=== PATIENT | male | born 1950 | race Caucasian/White ===

== ENCOUNTER 2017-06-09 14:17 | Inpatient (IN) | payer OTHER ==
[~2017-06-09] VITALS: Ht 185.4 cm; Wt 118.0 kg
[~2017-06-09 14:17] MED LIST: DIVA500T5 PO; EFFSR150 PO; EFFSR75 PO; FLM4 PO; GLIM4TAB2 PO; INSDGI SC; LISI-725 PO; MELO-84 PO; NVLGI SC; OMEP20CA9 PO
[2017-06-09] MEDS ORDERED: SODIUM CHLORIDE 0.9% 500ML 500 ML IV STA (14:31)
[2017-06-09] MEDS ORDERED: OXYB10TA PO (14:55)
[2017-06-09 14:58] LABS: BASO % 0.1 %; BASO ABS # 0.01 K/uL (0-0.2); EOS % 0.1 %; EOS ABS # 0.01 K/uL (0-0.5); HEMATOCRIT 34.2 % (42-52); HEMOGLOBIN 11.9 g/dL (14.0-18.0); IG# 0.03 K/uL (0.00-0.02); LYMPH % 9.9 %; LYMPH ABS # 1.12 K/uL (1.2-3.4); MEAN CELL VOLUME 83.4 fL (80-100); MEAN CORPUSCULAR HGB CONC 34.8 g/dl (32-36); MEAN PLATELET VOLUME 9.5 fL (7.4-10.4); MONO % 9.8 %; MONO ABS # 1.11 K/uL (0.11-0.59); NEUT % 79.8 %; NEUT ABS # 9.06 K/uL (1.4-6.5); PLATELET COUNT 160 K/uL (130-400); RED CELL DISTRIBUTION WIDTH SD 42.9 fL (36.4-46.3); WHITE BLOOD COUNT 11.34 K/uL (4.8-10.8)
[2017-06-09] MEDS ORDERED: LOSA50TA6 PO (15:06)
[2017-06-09] MEDS ORDERED: CHOL1CAP63 PO (15:06)
--- NOTE | 2017-06-09 15:08 | DIAGNOSTIC IMAGING REPORT ---
CHEST ONE VIEW PORTABLE CLINICAL HISTORY: Weakness COMPARISON STUDY: No previous studies for comparison. FINDINGS: The cardiac and mediastinal contours are normal. There is no evidence of focal pulmonary consolidation. There is no evidence of failure. No pleural effusions are visualized.[ Degenerative changes are present within the left shoulder. There is an old left second rib fracture. IMPRESSION: No active disease in the chest. Electronically signed by: Chico Sotomayor M.D. 06/09/2017 3:07 PM Dictated Date/Time: 06/09/2017 3:06 PM
[2017-06-09 15:15] LABS: ALBUMIN 3.2 gm/dl (3.4-5.0); CALCIUM 8.4 mg/dl (8.5-10.1); CREATININE 2.49 mg/dl (0.60-1.40); POTASSIUM 3.8 mmol/L (3.5-5.1)
[2017-06-09] MEDS ORDERED: CRG625 PO (15:17)
[2017-06-09] MEDS ORDERED: NRV/5 PO (15:17)
[2017-06-09] MEDS ORDERED: SULF800T23 PO (15:17)
[2017-06-09] MEDS ORDERED: DPKEC500 PO (15:17)
[2017-06-09] MEDS ORDERED: SENN-61 PO (15:17)
[2017-06-09] MEDS ORDERED: NVLGI/PEN SQ ×2 (15:17)
[2017-06-09] MEDS ORDERED: LTRCR30 TOP (15:17)
[2017-06-09] MEDS ORDERED: INSDGIPEN SQ (15:17)
[2017-06-09] MEDS ORDERED: LSX20 PO (15:17)
[2017-06-09 15:18] LABS: TOTAL PROTEIN 6.9 gm/dl (6.4-8.2)
[2017-06-09] MEDS ORDERED: CEFTRIAXONE SOD INJ 1 GM ADDVIAL IV STA (16:15)
[2017-06-09] MEDS ORDERED: PRS5 PO (16:55)
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
--- NOTE | 2017-06-09 18:11 | DIAGNOSTIC IMAGING REPORT ---
RENAL ULTRASOUND CLINICAL HISTORY: Acute kidney injury. COMPARISON STUDY: None. TECHNIQUE: Sonography of the kidneys and the urinary bladder was performed. FINDINGS: Exam is mildly compromised by suboptimal penetration related to body habitus. The right kidney measures 9.8 x 6.8 x 7.1 cm and the left measures 10.2 x 5.4 x 5.7 cm. There is no hydronephrosis. Renal echogenicity, size and cortical thickness are normal. There is probable fatty infiltration of the liver. Bladder is suboptimally assessed due to underdistention. IMPRESSION: 1. No hydronephrosis. 2. Fatty liver. 3. Study mildly compromised by suboptimal penetration. Electronically signed by: Allen Crawley M.D. 06/09/2017 6:09 PM Dictated Date/Time: 06/09/2017 6:09 PM
[2017-06-09] MEDS ORDERED: DEXTROSE 50% 50 ML SYR IV PRN (18:15)
[2017-06-09] MEDS ORDERED: GLUCOSE 10 TABS/TUBE PO PRN (18:15)
[2017-06-09] MEDS ORDERED: GLUCAGON FOR INJ 1 MG VIAL SQ PRN (18:15)
[2017-06-09] MEDS ORDERED: GLUCOSE 40% GEL 15 GM TUBE PO PRN (18:15)
[2017-06-09] MEDS: SODIUM CHLORIDE 0.9% 1000ML 1,000 ML IV SCH (18:50)
[2017-06-09 18:57] LABS: INR 1.1 (0.9-1.1); PTT PATIENT 27.3 SECONDS (21.0-31.0)
[2017-06-09 19:39] VITALS: O2SAT 98; Ht 185.4 cm; Wt 118.0 kg
[2017-06-09 19:41] VITALS: BP 126/67; PULSE 79; TEMP 37; O2SAT 97
[2017-06-09] MEDS ORDERED: CARVEDILOL 3.125 MG TAB PO SCH (20:00)
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
[2017-06-09] MEDS: OXYBUTYNIN CHLORIDE 5 MG TABCR PO SCH (20:24)
[2017-06-09] MEDS ORDERED: INSULIN GLARGINE SOLOSTAR 100 UNITS/ML 3 ML PEN SQ SCH (21:00)
[2017-06-09] MEDS: HEPARIN SOD 5000 UNIT/0.5 ML CARP SQ SCH (21:41)
[2017-06-09] MEDS: INSULIN ASPART 100 UNITS/ML 3 ML PEN SC SCH (21:43)
[2017-06-09] MEDS: INSULIN GLARGINE SOLOSTAR 100 UNITS/ML 3 ML PEN SQ SCH (21:44)
[2017-06-09] MEDS ORDERED: PNEUMOCOCCAL POLYSACCHARIDES 25 MCG/0.5 ML VIAL/SYR IM. ONE (22:00)
[2017-06-09] MEDS ORDERED: PNEUMOCOCCAL ADMINISTRATION CHARGE ONE (22:00)
[2017-06-09 23:04] VITALS: BP 153/72; PULSE 84; TEMP 38.1; O2SAT 95
[2017-06-09] MEDS ORDERED: ACETAMINOPHEN 325 MG TAB PO PRN (23:30)
[2017-06-10 00:15] VITALS: PULSE 108; TEMP 36.7; O2SAT 90
[2017-06-10 00:37] VITALS: PULSE 96; O2SAT 96
[2017-06-10] MEDS ORDERED: NURSING DECISION MEDICATION ORDER SCH ×2 (00:45→02:00)
[2017-06-10] MEDS ORDERED: SODIUM CHLORIDE 0.65% NA SOLN 45 ML (OCEAN) PRN (01:00)
[2017-06-10] MEDS ORDERED: LIDOCAINE HCL 2% JELLY 30 ML TUBE EXT ONE (02:08)
[2017-06-10] MEDS ORDERED: LIDOCAINE HCL 2% JELLY 30 ML TUBE EXT PRN (04:30)
[2017-06-10] MEDS: SODIUM CHLORIDE 0.9% 1000ML 1,000 ML IV SCH ×2 (05:24→13:55)
[2017-06-10 07:29] VITALS: BP 127/68; PULSE 74; TEMP 37; O2SAT 98
[2017-06-10] MEDS ORDERED: VENLAFAXINE HCL XR 75 MG CAPXR PO SCH (08:00)
[2017-06-10] MEDS ORDERED: VENLAFAXINE HCL XR 150 MG CAPXR PO SCH (08:00)
[2017-06-10] MEDS ORDERED: AMLODIPINE BESYLATE 5 MG TAB PO SCH (08:00)
[2017-06-10] MEDS: OXYBUTYNIN CHLORIDE 5 MG TABCR PO SCH ×2 (08:22→20:29)
[2017-06-10] MEDS: VENLAFAXINE HCL XR 150 MG CAPXR PO SCH (08:22)
[2017-06-10] MEDS: SENNA 8.6 MG TAB PO SCH (08:22)
[2017-06-10] MEDS: DIVALPROEX SODIUM 500 MG DELAY RELEASE TAB PO SCH (08:23)
[2017-06-10] MEDS: PANTOprazole SOD 40 MG TAB PO SCH (08:23)
[2017-06-10] MEDS: FINASTERIDE 5 MG TAB PO SCH (08:23)
[2017-06-10] MEDS: INSULIN ASPART 100 UNITS/ML 3 ML PEN SC SCH ×4 (08:57→20:32)
[2017-06-10] MEDS: HEPARIN SOD 5000 UNIT/0.5 ML CARP SQ SCH ×2 (08:58→20:33)
[2017-06-10 09:09] LABS: EOS % 0.8 %; EOS ABS # 0.07 K/uL (0-0.5); HEMATOCRIT 33.8 % (42-52); HEMOGLOBIN 11.7 g/dL (14.0-18.0); IG# 0.02 K/uL (0.00-0.02); LYMPH % 11.4 %; LYMPH ABS # 0.98 K/uL (1.2-3.4); MEAN CELL VOLUME 83.3 fL (80-100); MEAN CORPUSCULAR HEMOGLOBIN 28.8 pg (25-34); MEAN CORPUSCULAR HGB CONC 34.6 g/dl (32-36); MEAN PLATELET VOLUME 9.2 fL (7.4-10.4); MONO % 9.4 %; MONO ABS # 0.81 K/uL (0.11-0.59); NEUT % 78.2 %; NEUT ABS # 6.75 K/uL (1.4-6.5); PLATELET COUNT 148 K/uL (130-400); RED CELL DISTRIBUTION WIDTH CV 13.9 % (11.5-14.5); RED CELL DISTRIBUTION WIDTH SD 42.3 fL (36.4-46.3); WHITE BLOOD COUNT 8.63 K/uL (4.8-10.8)
[2017-06-10 09:40] LABS: CALCIUM 8.2 mg/dl (8.5-10.1); CREATININE 1.75 mg/dl (0.60-1.40); POTASSIUM 3.5 mmol/L (3.5-5.1)
[2017-06-10 09:42] LABS: PHOSPHORUS 2.5 mg/dl (2.5-4.9); TOTAL PROTEIN 6.5 gm/dl (6.4-8.2)
[2017-06-10 10:02] LABS: INFLUENZA B ANTIGEN Neg for Influ B (NEG)
--- NOTE | 2017-06-10 12:23 | Family Medicine Progress Note ---
Progress Note Date of Service Jun 10, 2017. Subjective Voiding: kerr catheter in place (dark urine) Pt sleeping comfortably in bed complains that he feels like he needs to urinate. He denies SOB, chest pain, abdominal pain. Checked vitals 130/68, pulse in the 70s, afebrile. Did spike a fever overnight, says he felt sweaty. ROS See HPI for pertinent positives and negatives. Medications Current Inpatient Medications Medications (Trade) Dose Ordered Sig/Raulito Route Start Time Stop Time Status Last Admin Dose Admin Heparin Sodium (Porcine) (Heparin Sq 5000 Unit/0.5ml) 5,000 unit Q12 SQ 06/09/17 21:00 07/09/17 20:59 06/09/17 21:41 5,000 UNIT Sodium Chloride 1,000 ml @ 100 mls/hr Q10H IV 06/09/17 17:15 07/09/17 17:14 06/10/17 05:24 100 MLS/HR Ceftriaxone Sodium 1 gm/ Dextrose 50 ml @ 100 mls/hr Q24H IV 06/10/17 16:00 06/18/17 15:59 Divalproex Sodium (Depakote Delay Rel Tab) 1,000 mg QAM PO 06/10/17 08:00 07/10/17 08:59 Finasteride (Proscar Tab) 5 mg DAILY PO 06/10/17 08:00 07/10/17 08:59 Oxybutynin Chloride (Ditropan-Xl Tab) 10 mg BID PO 06/09/17 20:00 07/09/17 20:59 06/09/17 20:24 10 MG Senna (Senokot Tab) 8.6 mg DAILY PO 06/10/17 08:00 07/10/17 08:59 Tamsulosin HCl (Flomax Cap) 0.4 mg DAILYBD PO 06/10/17 16:00 07/10/17 15:59 Miscellaneous Information (Order Awaiting Action) 1 ea QS N/A 06/10/17 00:00 07/10/17 00:00 Pantoprazole Sodium (Protonix Tab) 40 mg DAILY PO 06/10/17 08:00 07/10/17 08:59 Insulin Aspart (novoLOG ASPART) SLIDING SCALE If C... ACHS SC 06/09/17 21:00 07/09/17 20:59 06/09/17 21:43 4 UNITS Glucose (Glucose 40% Gel) 15-30 GRAMS 15 GRAMS... UD PRN PO 06/09/17 18:15 07/09/17 18:14 Glucose (Glucose Chew Tab) 4-8 Tablets 4 Tabl... UD PRN PO 06/09/17 18:15 07/09/17 18:14 Dextrose (Dextrose 50% 50ML Syringe) 25-50ML OF 50% DW IV FOR... UD PRN IV 06/09/17 18:15 07/09/17 18:14 Glucagon (Glucagon Inj) 1 mg UD PRN SQ 06/09/17 18:15 07/09/17 18:14 Insulin Glargine (Lantus Solostar Pen) 15 units HS SQ 06/09/17 21:00 07/09/17 20:59 06/09/17 21:44 15 UNITS Venlafaxine HCl (effeXOR EXTENDED REL CAP) 150 mg DAILY PO 06/10/17 08:00 07/10/17 08:59 Acetaminophen (Tylenol Tab) 650 mg Q4H PRN PO 06/09/17 23:30 07/09/17 23:29 06/09/17 23:31 650 MG Sodium Chloride ([place] Nasal [place]) 1 sprays PRN PRN NA 06/10/17 01:00 07/10/17 00:59 Lidocaine HCl (Xylocaine Jelly 2%) UD PRN EXT 06/10/17 04:30 07/10/17 04:29 Objective Vital Signs Date Time Temp Pulse Resp B/P (MAP) Pulse Ox O2 Delivery O2 Flow Rate FiO2 06/10/17 07:29 37.0 74 18 127/68 (87) 98 Nasal Cannula 2.0 06/10/17 01:45 Nasal Cannula 2.0 06/10/17 00:37 96 96 Nasal Cannula 2.0 06/10/17 00:15 36.7 108 90 Room Air 06/09/17 23:04 38.1 84 19 153/72 (99) 95 Room Air 06/09/17 19:41 37.0 79 20 126/67 (86) 97 Room Air 06/09/17 19:39 98 Room Air 06/09/17 16:13 70 18 97/54 98 Room Air 06/09/17 14:19 37.0 73 16 107/65 96 Physical Exam Notes: GENERAL: Awake, alert, in no distress. HENT: Normocephalic, atraumatic. EYES: Normal conjunctiva. Sclera non-icteric. RESPIRATORY: Clear to auscultation. CARDIAC: Regular rate, normal rhythm. Extremities warm and well perfused. Pulses equal. ABDOMEN: Soft, non-distended. No tenderness to palpation. No rebound or guarding. No masses. LOWER EXTREMITIES: Calves are equal size bilaterally and non-tender. No edema. No discoloration. LLE slightly more erythematous. NEURO: Normal sensorium. Left hemiparesis total weakness in left LE, partial weakness in LUE SKIN: No rash or jaundice noted. Laboratory Results Test 06/09/17 14:42 06/09/17 16:13 06/09/17 21:32 06/10/17 04:44 RDW Standard Deviation 42.9 fL (36.4-46.3) RDW Coefficient of Variation 14.0 % (11.5-14.5) White Blood Count 11.34 K/uL (4.8-10.8) Red Blood Count 4.10 M/uL (4.7-6.1) Hemoglobin 11.9 g/dL (14.0-18.0) Hematocrit 34.2 % (42-52) Mean Corpuscular Volume 83.4 fL (80-100) Mean Corpuscular Hemoglobin 29.0 pg (25-34) Mean Corpuscular Hemoglobin Concent 34.8 g/dl (32-36) Platelet Count 160 K/uL (130-400) Mean Platelet Volume 9.5 fL (7.4-10.4) Neutrophils (%) (Auto) 79.8 % Lymphocytes (%) (Auto) 9.9 % Monocytes (%) (Auto) 9.8 % Eosinophils (%) (Auto) 0.1 % Basophils (%) (Auto) 0.1 % Neutrophils # (Auto) 9.06 K/uL (1.4-6.5) Lymphocytes # (Auto) 1.12 K/uL (1.2-3.4) Monocytes # (Auto) 1.11 K/uL (0.11-0.59) Eosinophils # (Auto) 0.01 K/uL (0-0.5) Basophils # (Auto) 0.01 K/uL (0-0.2) Immature Granulocyte % (Auto) 0.3 % Immature Granulocyte # (Auto) 0.03 K/uL (0.00-0.02) Prothrombin Time 11.3 SECONDS (9.0-12.0) Prothromb Time International Ratio 1.1 (0.9-1.1) Activated Partial Thromboplast Time 27.3 SECONDS (21.0-31.0) Partial Thromboplastin Ratio 1.1 Est Creatinine Clear Calc Drug Dose 39.8 ml/min Direct Bilirubin 0.1 mg/dl (0-0.2) Lipase 57 U/L (73-393) Urine Color ORANGE Urine Appearance TURBID (CLEAR) Urine pH 7.5 (4.5-7.5) Urine Specific [place] 1.023 (1.000-1.030) Urine Protein 1+ (NEG) Urine Glucose (UA) NEG (NEG) Urine Ketones TRACE (NEG) Urine Occult Blood 3+ (NEG) Urine Nitrite NEG (NEG) Urine Bilirubin NEG (NEG) Urine Urobilinogen NEG (NEG) Urine Leukocyte Esterase LARGE (NEG) Urine WBC (Auto) >30 /hpf (0-5) Urine RBC (Auto) >30 /hpf (0-4) Urine Hyaline Casts (Auto) 0 /lpf (0-5) Urine Epithelial Cells (Auto) >30 /lpf (0-5) Urine Bacteria (Auto) 2+ (NEG) Urine Pathogenic Casts /lpf (0) Bedside Glucose 198 mg/dl (70-99) Test 06/10/17 07:24 Assessment and Plan 67M here for KAMERON and weakness KAMERON - NSS 1000mL @ 100 ml/hr - holding lasix - renal US neg for hydronephrosis - nephro consulted UTI - rocephin IV 1gm q24h running - kerr catheter placed while in ED DVT SQ 5000uHeparin Code: DNR Dispo: [facility] Resident Physician Supervision Note: I interviewed and examined the patient. Discussed with the resident and agree with findings and plan as documented in the note. Any exceptions or clarifications are listed here: He reports feeling much better than yesterday. Hemodynamically stable and appears euvolemic clinically. Continue current care pending culture results. Recommend PT/OT consult yesterday if he continues to improve. Given his history of TBI, he may benefit from home PT upon discharge. Documented By: Daniel Diaz Continued [facility] stay due to: multiple IV medications needed Resident Tracking Resident Involvement: Resident Care Provided Care Provided: Adult [facility]
[2017-06-10] MEDS: VENLAFAXINE HCL XR 75 MG CAPXR PO SCH (12:52)
[2017-06-10 15:52] VITALS: BP 137/73; PULSE 71; TEMP 36.9; O2SAT 98
[2017-06-10] MEDS: TAMSULOSIN HCL 0.4 MG CAP PO SCH (16:22)
[2017-06-10] MEDS: CEFTRIAXONE SOD INJ 1 GM in DEXTROSE 5% ADD-VANTAGE 50ML 50 ML IV SCH (16:22)
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
[2017-06-10 18:40] VITALS: BP 160/80; PULSE 81; O2SAT 97
[2017-06-10] MEDS: INSULIN GLARGINE SOLOSTAR 100 UNITS/ML 3 ML PEN SQ SCH (20:32)
[2017-06-11 00:12] VITALS: BP 137/65; PULSE 82; TEMP 37.4; O2SAT 98
[2017-06-11] MEDS: SODIUM CHLORIDE 0.9% 1000ML 1,000 ML IV SCH (02:22)
[2017-06-11 07:06] LABS: HEMATOCRIT 30.8 % (42-52); HEMOGLOBIN 10.9 g/dL (14.0-18.0); MEAN CELL VOLUME 84.2 fL (80-100); MEAN CORPUSCULAR HEMOGLOBIN 29.8 pg (25-34); MEAN CORPUSCULAR HGB CONC 35.4 g/dl (32-36); PLATELET COUNT 139 K/uL (130-400); RED CELL DISTRIBUTION WIDTH CV 13.7 % (11.5-14.5); WHITE BLOOD COUNT 4.91 K/uL (4.8-10.8)
[2017-06-11 07:36] LABS: CALCIUM 8.1 mg/dl (8.5-10.1); CREATININE 1.37 mg/dl (0.60-1.40); POTASSIUM 3.6 mmol/L (3.5-5.1)
[2017-06-11 07:51] VITALS: BP 157/80; PULSE 78; TEMP 37.2; O2SAT 97
[2017-06-11] MEDS: VENLAFAXINE HCL XR 150 MG CAPXR PO SCH (08:03)
[2017-06-11] MEDS: VENLAFAXINE HCL XR 75 MG CAPXR PO SCH (08:04)
[2017-06-11] MEDS: OXYBUTYNIN CHLORIDE 5 MG TABCR PO SCH ×2 (08:05→20:03)
[2017-06-11] MEDS: PANTOprazole SOD 40 MG TAB PO SCH (08:05)
[2017-06-11] MEDS: FINASTERIDE 5 MG TAB PO SCH (08:06)
[2017-06-11] MEDS: SENNA 8.6 MG TAB PO SCH (08:06)
[2017-06-11] MEDS: DIVALPROEX SODIUM 500 MG DELAY RELEASE TAB PO SCH (08:07)
[2017-06-11] MEDS: HEPARIN SOD 5000 UNIT/0.5 ML CARP SQ SCH ×2 (08:09→20:25)
[2017-06-11 09:00] VITALS: O2SAT 97
[2017-06-11] MEDS: INSULIN ASPART 100 UNITS/ML 3 ML PEN SC SCH ×4 (10:05→20:08)
[2017-06-11 11:18] VITALS: O2SAT 98
--- NOTE | 2017-06-11 11:36 | Nephrology Progress Note ---
Nephrology Progress Note Date of Service Jun 11, 2017. Chief Complaint Acute kidney injury Subjective Mr. Bauer was seen & examined in his hospital room this morning. He fell while getting into bed last night but denies injuring himself. Mr. Bauer reports that overall he is subjectively improved. Review of Systems Constitutional: No fever Cardiovascular: No chest pain Respiratory: No dyspnea at rest Abdomen: No pain, No nausea, No vomiting Extremities: No leg edema A complete review of systems was performed. Pertinent positives are noted above. All other systems are negative. Vital Signs Last 8 Hrs Date Time Temp Pulse Resp B/P (MAP) Pulse Ox O2 Delivery O2 Flow Rate FiO2 06/11/17 11:18 98 Room Air 06/11/17 07:51 37.2 78 22 157/80 (105) 97 Room Air Last Recorded Weight Weight (Kilograms): 118.000 Physical Exam General Appearance: no apparent distress Head: normocephalic, atraumatic Eyes: PERRL, EOMI Neck: no adenopathy Respiratory/Chest: lungs clear, no respiratory distress Cardiovascular: regular rate, rhythm Abdomen/GI: normal bowel sounds, non tender, soft Genitourinary - Male: + pertinent finding (kerr catheter w/ clear yellow urine ) Extremities/Musculoskelatal: no calf tenderness, no pedal edema Neurologic/Psych: alert, oriented x 3 Family History Cancer Diabetes mellitus Hypertension Lung disease Negative for CKD / ESRD Social History Smokeless Tobacco Use: No Alcohol Use: occasionally Drug Use: none Marital Status: Housing Status: lives with significant other Occupation: unemployed . Retired. Used to work in [employer]. Former smoker Laboratory Results Past 24 Hours 06/11/17 06:39 06/11/17 06:39 Test 06/10/17 11:55 06/10/17 16:35 06/10/17 17:35 06/10/17 20:29 Bedside Glucose 146 mg/dl (70-99) 120 mg/dl (70-99) 159 mg/dl (70-99) Urine Random Creatinine 169.0 mg/dl Urine Random Sodium 17 mEq/L Test 06/11/17 06:39 06/11/17 07:42 Red Blood Count 3.66 M/uL (4.7-6.1) Mean Corpuscular Volume 84.2 fL (80-100) Mean Corpuscular Hemoglobin 29.8 pg (25-34) Mean Corpuscular Hemoglobin Concent 35.4 g/dl (32-36) RDW Standard Deviation 42.0 fL (36.4-46.3) RDW Coefficient of Variation 13.7 % (11.5-14.5) Mean Platelet Volume 10.0 fL (7.4-10.4) Anion Gap 6.0 mmol/L (3-11) Est Creatinine Clear Calc Drug Dose 72.3 ml/min Estimated GFR () 62.3 Estimated GFR (Non- 53.7 BUN/Creatinine Ratio 17.5 (10-20) Calcium Level 8.1 mg/dl (8.5-10.1) Bedside Glucose 105 mg/dl (70-99) Allergies Coded Allergies: No Known Allergies (Unverified , 04/09/14) Medications Current Inpatient Medications Medications (Trade) Dose Ordered Sig/Raulito Route Start Time Stop Time Status Last Admin Dose Admin Heparin Sodium (Porcine) (Heparin Sq 5000 Unit/0.5ml) 5,000 unit Q12 SQ 06/09/17 21:00 07/09/17 20:59 06/11/17 08:09 5,000 UNIT Sodium Chloride 1,000 ml @ 100 mls/hr Q10H IV 06/09/17 17:15 07/09/17 17:14 06/11/17 02:22 100 MLS/HR Ceftriaxone Sodium 1 gm/ Dextrose 50 ml @ 100 mls/hr Q24H IV 06/10/17 16:00 06/18/17 15:59 06/10/17 16:22 100 MLS/HR Divalproex Sodium (Depakote Delay Rel Tab) 1,000 mg QAM PO 06/10/17 08:00 07/10/17 08:59 06/11/17 08:07 1,000 MG Finasteride (Proscar Tab) 5 mg DAILY PO 06/10/17 08:00 07/10/17 08:59 06/11/17 08:06 5 MG Oxybutynin Chloride (Ditropan-Xl Tab) 10 mg BID PO 06/09/17 20:00 07/09/17 20:59 06/11/17 08:05 10 MG Senna (Senokot Tab) 8.6 mg DAILY PO 06/10/17 08:00 07/10/17 08:59 06/11/17 08:06 8.6 MG Tamsulosin HCl (Flomax Cap) 0.4 mg DAILYBD PO 06/10/17 16:00 07/10/17 15:59 06/10/17 16:22 0.4 MG Miscellaneous Information (Order Awaiting Action) 1 ea QS N/A 06/10/17 00:00 07/10/17 00:00 Pantoprazole Sodium (Protonix Tab) 40 mg DAILY PO 06/10/17 08:00 07/10/17 08:59 06/11/17 08:05 40 MG Insulin Aspart (novoLOG ASPART) SLIDING SCALE If C... ACHS SC 06/09/17 21:00 07/09/17 20:59 06/11/17 10:05 8 UNITS Glucose (Glucose 40% Gel) 15-30 GRAMS 15 GRAMS... UD PRN PO 06/09/17 18:15 07/09/17 18:14 Glucose (Glucose Chew Tab) 4-8 Tablets 4 Tabl... UD PRN PO 06/09/17 18:15 07/09/17 18:14 Dextrose (Dextrose 50% 50ML Syringe) 25-50ML OF 50% DW IV FOR... UD PRN IV 06/09/17 18:15 07/09/17 18:14 Glucagon (Glucagon Inj) 1 mg UD PRN SQ 06/09/17 18:15 07/09/17 18:14 Insulin Glargine (Lantus Solostar Pen) 15 units HS SQ 06/09/17 21:00 07/09/17 20:59 06/10/17 20:32 15 UNITS Venlafaxine HCl (effeXOR EXTENDED REL CAP) 150 mg DAILY PO 06/10/17 08:00 07/10/17 08:59 06/11/17 08:03 150 MG Acetaminophen (Tylenol Tab) 650 mg Q4H PRN PO 06/09/17 23:30 07/09/17 23:29 06/09/17 23:31 650 MG Sodium Chloride ([place] Nasal [place]) 1 sprays PRN PRN NA 06/10/17 01:00 07/10/17 00:59 Lidocaine HCl (Xylocaine Jelly 2%) UD PRN EXT 06/10/17 04:30 07/10/17 04:29 Venlafaxine HCl (effeXOR EXTENDED REL CAP) 75 mg DAILY PO 06/10/17 12:00 07/10/17 11:59 06/11/17 08:04 75 MG Impression (1) UTI (urinary tract infection) (2) KAMERON (acute kidney injury) (3) Dehydration (4) Diabetes (5) BPH (benign prostatic hyperplasia) Recommendations ACUTE KIDNEY INJURY: -- Clinically suspect dehydration associated w/ UTI. FeNa was < 1% -- Kidney function has recovered. Will stop IVF -- Renal US report 06/10: No obstruction. -- Electrolyte balance is acceptable at this time -- Monitor daily PRP -- No further Nephrology evaluation needed at this time. Will sign off. Please call if further assistance is needed. BPH: -- Continue alpha jimena therapy -- Will need voiding trial after Kerr catheter removed -- If PVR > 100 recommend Urology evaluation ID: -- Patient tested negative for Influenza -- Urine culture positive for Proteus sensitive to Ceftriaxone
[2017-06-11 15:18] VITALS: BP 154/72; PULSE 77; TEMP 36.8; O2SAT 96
[2017-06-11] MEDS: TAMSULOSIN HCL 0.4 MG CAP PO SCH (15:51)
[2017-06-11] MEDS: CEFTRIAXONE SOD INJ 1 GM in DEXTROSE 5% ADD-VANTAGE 50ML 50 ML IV SCH (15:51)
[2017-06-11 16:00] VITALS: O2SAT 97
--- NOTE | 2017-06-11 17:18 | Family Medicine Progress Note ---
Progress Note Date of Service Jun 11, 2017. Subjective Pt sleeping comfortably in bed complains that he feels like he needs to urinate. No more fevers overnight. Eating and voiding well, stooling. Did fall yesterday afternoon, per nurse bed alarm did not sound and patient reported he didn't want to bother anyone. Dr. Pulliam went and assessed patient, stable, no injury grossly observed. Denies pain anywhere now. He denies SOB, chest pain, abdominal pain. ROS See HPI for pertinent positives and negatives. Medications Current Inpatient Medications Medications (Trade) Dose Ordered Sig/Raulito Route Start Time Stop Time Status Last Admin Dose Admin Heparin Sodium (Porcine) (Heparin Sq 5000 Unit/0.5ml) 5,000 unit Q12 SQ 06/09/17 21:00 07/09/17 20:59 06/11/17 08:09 5,000 UNIT Ceftriaxone Sodium 1 gm/ Dextrose 50 ml @ 100 mls/hr Q24H IV 06/10/17 16:00 06/18/17 15:59 06/11/17 15:51 100 MLS/HR Divalproex Sodium (Depakote Delay Rel Tab) 1,000 mg QAM PO 06/10/17 08:00 07/10/17 08:59 06/11/17 08:07 1,000 MG Finasteride (Proscar Tab) 5 mg DAILY PO 06/10/17 08:00 07/10/17 08:59 06/11/17 08:06 5 MG Oxybutynin Chloride (Ditropan-Xl Tab) 10 mg BID PO 06/09/17 20:00 07/09/17 20:59 06/11/17 08:05 10 MG Senna (Senokot Tab) 8.6 mg DAILY PO 06/10/17 08:00 07/10/17 08:59 06/11/17 08:06 8.6 MG Tamsulosin HCl (Flomax Cap) 0.4 mg DAILYBD PO 06/10/17 16:00 07/10/17 15:59 06/11/17 15:51 0.4 MG Miscellaneous Information (Order Awaiting Action) 1 ea QS N/A 06/10/17 00:00 07/10/17 00:00 Pantoprazole Sodium (Protonix Tab) 40 mg DAILY PO 06/10/17 08:00 07/10/17 08:59 06/11/17 08:05 40 MG Insulin Aspart (novoLOG ASPART) SLIDING SCALE If C... ACHS SC 06/09/17 21:00 07/09/17 20:59 06/11/17 13:23 5 UNITS Glucose (Glucose 40% Gel) 15-30 GRAMS 15 GRAMS... UD PRN PO 06/09/17 18:15 07/09/17 18:14 Glucose (Glucose Chew Tab) 4-8 Tablets 4 Tabl... UD PRN PO 06/09/17 18:15 07/09/17 18:14 Dextrose (Dextrose 50% 50ML Syringe) 25-50ML OF 50% DW IV FOR... UD PRN IV 06/09/17 18:15 07/09/17 18:14 Glucagon (Glucagon Inj) 1 mg UD PRN SQ 06/09/17 18:15 07/09/17 18:14 Insulin Glargine (Lantus Solostar Pen) 15 units HS SQ 06/09/17 21:00 07/09/17 20:59 06/10/17 20:32 15 UNITS Venlafaxine HCl (effeXOR EXTENDED REL CAP) 150 mg DAILY PO 06/10/17 08:00 07/10/17 08:59 06/11/17 08:03 150 MG Acetaminophen (Tylenol Tab) 650 mg Q4H PRN PO 06/09/17 23:30 07/09/17 23:29 06/09/17 23:31 650 MG Sodium Chloride (Waggoner Nasal Manley) 1 sprays PRN PRN NA 06/10/17 01:00 07/10/17 00:59 Lidocaine HCl (Xylocaine Jelly 2%) UD PRN EXT 06/10/17 04:30 07/10/17 04:29 Venlafaxine HCl (effeXOR EXTENDED REL CAP) 75 mg DAILY PO 06/10/17 12:00 07/10/17 11:59 06/11/17 08:04 75 MG Objective Vital Signs Date Time Temp Pulse Resp B/P (MAP) Pulse Ox O2 Delivery O2 Flow Rate FiO2 06/11/17 16:00 97 Room Air 06/11/17 15:18 36.8 77 22 154/72 (99) 96 Room Air 06/11/17 11:18 98 Room Air 06/11/17 09:00 97 Room Air 06/11/17 07:51 37.2 78 22 157/80 (105) 97 Room Air 06/11/17 00:25 Nasal Cannula 2.0 06/11/17 00:12 37.4 82 20 137/65 (89) 98 Nasal Cannula 2.0 06/10/17 20:05 Nasal Cannula 2.0 06/10/17 18:40 81 22 160/80 (106) 97 2.0 Physical Exam Notes: GENERAL: Awake, in no distress. HENT: Normocephalic, atraumatic. EYES: Normal conjunctiva. Sclera non-icteric. RESPIRATORY: Clear to auscultation. CARDIAC: Regular rate, normal rhythm. Extremities warm and well perfused. Pulses equal. ABDOMEN: Soft, non-distended. No tenderness to palpation. No rebound or guarding. No masses. LOWER EXTREMITIES: Calves are equal size bilaterally and non-tender. TRACE edema. No discoloration. LLE slightly more erythematous. NEURO: Normal sensorium. Left hemiparesis total weakness in left LE, partial weakness in LUE. Cognition was grossly intact with orientation to person, place and time. SKIN: No rash or jaundice noted. Laboratory Results 06/11/17 06:39 06/11/17 06:39 Test 06/10/17 17:35 06/11/17 06:39 06/11/17 16:42 Urine Random Creatinine 169.0 mg/dl Urine Random Sodium 17 mEq/L Red Blood Count 3.66 M/uL (4.7-6.1) Mean Corpuscular Volume 84.2 fL (80-100) Mean Corpuscular Hemoglobin 29.8 pg (25-34) Mean Corpuscular Hemoglobin Concent 35.4 g/dl (32-36) RDW Standard Deviation 42.0 fL (36.4-46.3) RDW Coefficient of Variation 13.7 % (11.5-14.5) Mean Platelet Volume 10.0 fL (7.4-10.4) Anion Gap 6.0 mmol/L (3-11) Est Creatinine Clear Calc Drug Dose 72.3 ml/min Estimated GFR () 62.3 Estimated GFR (Non- 53.7 BUN/Creatinine Ratio 17.5 (10-20) Calcium Level 8.1 mg/dl (8.5-10.1) Bedside Glucose 137 mg/dl (70-99) Assessment and Plan 67M here for KAMERON and weakness KAMERON - NSS 1000mL @ 100 ml/hr - holding lasix - renal US neg for hydronephrosis - nephro consulted, appreciate recs: DC IVF, DC kerr today or tomorrow, will need PVR>100. 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 HTN - continue amlodipine 5mg daily, carvedilol 6.25mg daily, - holding losartan potassium and lasix as above till kameron resolves Urinary obstruction - continue finasteride, oxybutinin Cl ER, Tamsulosin TBI - continue divalproex, venlafaxine 225mg daily DVTppx: SQ 5000uHeparin Code: DNR Dispo: GMF. PT/OT ordered. Question about mentation -- will call to establish baseline. Nancy [phone] Resident Physician Supervision Note: I was present with the resident physician during the history and exam. I discussed the case with the resident and agree with the findings and plan as documented in the note. Overall looks much better. Final culture shows assistance to Bactrim, which likely explains why the patient worsened in the interim between his outpatient appointment and his hospitalization. Consider transition to oral antibiotics tomorrow. He has a long-standing history of BPH of follows with a urologist as an outpatient. Recommend PT and OT consultations as he may benefit from some outpatient home physical therapy post discharge. Documented By: Daniel Diaz Continued [facility] stay due to: voiding difficulties, multiple IV medications needed Discharge planning: home Resident Tracking Resident Involvement: Resident Care Provided Care Provided: Adult Hospital Medicine
[2017-06-11] MEDS: INSULIN GLARGINE SOLOSTAR 100 UNITS/ML 3 ML PEN SQ SCH (20:37)
[2017-06-12] VITALS (7 sets, daily range): BP systolic 96–160; BP diastolic 63–84; PULSE 75–78; TEMP 36.6–36.8; O2SAT 90–98
[2017-06-12 06:22] LABS: EOS % 1.6 %; EOS ABS # 0.09 K/uL (0-0.5); HEMATOCRIT 33.8 % (42-52); HEMOGLOBIN 11.4 g/dL (14.0-18.0); IG# 0.03 K/uL (0.00-0.02); LYMPH % 13.5 %; LYMPH ABS # 0.78 K/uL (1.2-3.4); MEAN CELL VOLUME 84.7 fL (80-100); MEAN CORPUSCULAR HEMOGLOBIN 28.6 pg (25-34); MEAN CORPUSCULAR HGB CONC 33.7 g/dl (32-36); MEAN PLATELET VOLUME 9.8 fL (7.4-10.4); MONO % 14.7 %; MONO ABS # 0.85 K/uL (0.11-0.59); NEUT % 69.7 %; NEUT ABS # 4.04 K/uL (1.4-6.5); PLATELET COUNT 164 K/uL (130-400); RED CELL DISTRIBUTION WIDTH CV 13.7 % (11.5-14.5); RED CELL DISTRIBUTION WIDTH SD 42.8 fL (36.4-46.3); WHITE BLOOD COUNT 5.79 K/uL (4.8-10.8)
[2017-06-12 06:51] LABS: CALCIUM 8.3 mg/dl (8.5-10.1); CREATININE 1.19 mg/dl (0.60-1.40); POTASSIUM 4.2 mmol/L (3.5-5.1)
[2017-06-12] MEDS: DIVALPROEX SODIUM 500 MG DELAY RELEASE TAB PO SCH (08:16)
[2017-06-12] MEDS: OXYBUTYNIN CHLORIDE 5 MG TABCR PO SCH (08:18)
[2017-06-12] MEDS: VENLAFAXINE HCL XR 75 MG CAPXR PO SCH (08:19)
[2017-06-12] MEDS: VENLAFAXINE HCL XR 150 MG CAPXR PO SCH (08:19)
[2017-06-12] MEDS: FINASTERIDE 5 MG TAB PO SCH (08:20)
[2017-06-12] MEDS: PANTOprazole SOD 40 MG TAB PO SCH (08:21)
[2017-06-12] MEDS: SENNA 8.6 MG TAB PO SCH (08:22)
[2017-06-12] MEDS: INSULIN ASPART 100 UNITS/ML 3 ML PEN SC SCH ×3 (09:28→17:56)
[2017-06-12] MEDS: HEPARIN SOD 5000 UNIT/0.5 ML CARP SQ SCH (09:29)
[2017-06-12] MEDS: CEFTRIAXONE SOD INJ 1 GM in DEXTROSE 5% ADD-VANTAGE 50ML 50 ML IV SCH (15:36)
[2017-06-12] MEDS: TAMSULOSIN HCL 0.4 MG CAP PO SCH (15:37)
[2017-06-12] MEDS ORDERED: CEPHALEXIN MONOHYDRATE 500 MG CAP PO STA (16:07)
[2017-06-12] MEDS ORDERED: KFL500 PO (16:18)
--- NOTE | 2017-06-12 17:06 | Discharge Instructions ---
Discharge Instructions Date of Service Jun 12, 2017. Admission Reason for Admission: Efrain (Acute Kidney Injury) Discharge Discharge Diagnosis / Problem: EFRAIN, UTI complicated Discharge Goals Goal(s): Decrease discomfort, Improve disease control, Learn about illness, Diagnostic testing, Therapeutic intervention Activity Recommendations Activity Limitations: per Instructions/Follow-up section . Instructions / Follow-Up Instructions / Follow-Up You were admitted due to a urinary tract infection, which was complicated by some damage to your kidneys. That damage has since resolved, but we recommend you see your urologist Dr. Mckeon in 1-2 weeks to review your stay and make sure your urination is adequate. We are sending a script to your pharmacy for the tablet version of the antibiotic you received here in the hospital. Please take 1000mg twice a day for 7 days. Take with a probiotic containing yogurt to avoid diarrhea. Keep well hydrated, and continue eating a healthy balanced diet rich in vegetables. Be well A [place] Current Hospital Diet Patient's current hospital diet: Diabetes Type 2 Diet Discharge Diet Recommended Diet: Diabetes Type 2 Diet Pending Studies Studies pending at discharge: no Medical Emergencies . Who to Call and When: Medical Emergencies: If at any time you feel your situation is an emergency, please call 911 immediately. . Non-Emergent Contact Non-Emergency issues call your: Primary Care Provider, Urologist Call Non-Emergent contact if: temperature is above 101.5, your pain is not controlled, your pain is worsening . . "Provider Documentation" section prepared by Deanna Carlisle. .
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
== END 2017-06-12 19:00 | disposition home health service (06) | DRG 683 ==
LOC: C.EDB 14:20 → C.4E 17:11 → ENRESERV 17:27
PROVIDERS: ADMIT Internal Medicine; ATTEND Family Medicine
DX: N17.9 Acute kidney failure, unspecified (principal); N39.0 Urinary tract infection, site not specified; G81.94 Hemiplegia, unspecified affecting left nondominant side; R32 Unspecified urinary incontinence; S06.9X9S Unspecified intracranial injury with loss of consciousness of unspecified duration, sequela; N40.1 Benign prostatic hyperplasia with lower urinary tract symptoms; E11.9 Type 2 diabetes mellitus without complications; I10 Essential (primary) hypertension; Z87.891 Personal history of nicotine dependence; Z79.4 Long term (current) use of insulin; N31.9 Neuromuscular dysfunction of bladder, unspecified; K21.9 Gastro-esophageal reflux disease without esophagitis; E86.0 Dehydration; N13.9 Obstructive and reflux uropathy, unspecified; Z83.3 Family history of diabetes mellitus; V89.2XXS Person injured in unspecified motor-vehicle accident, traffic, sequela

== ENCOUNTER 2019-12-06 10:44 | Inpatient (IN) ==
--- NOTE | 2019-11-23 08:35 | PAT Medication Instructions ---
Medication Instructions Date of Service November 23, 2019 Home Medications Medication Instructions Recorded sulfamethoxazole 800 1 tab PO BID #10 tab 11/17/19 mg-trimethoprim 160 mg tablet divalproex 1,000 mg PO QAM hydralazine 50 mg PO BID insulin glargine U-300 conc [Toujeo SoloStar U-300 Insulin] 70 unit SUBCUT HS insulin lispro [Humalog KwikPen Insulin] 14 - 16 unit SUBCUT TIDM oxybutynin chloride 10 mg PO QAM tamsulosin 0.4 mg PO QAM venlafaxine 75 mg PO QAM venlafaxine 150 mg PO QAM furosemide 40 mg tablet 40 mg PO BID meloxicam 15 mg tablet 15 mg PO DAILY PRN omeprazole 20 mg capsule,delayed release 20 mg PO QAM telmisartan 80 mg-hydrochlorothiazide 12.5 mg tablet 1 tab PO QAM sulfamethoxazole 800 mg-trimethoprim 160 mg tablet 1 tab PO BID hydralazine 25 mg PO HS telmisartan-hydrochlorothiazid 1 tab PO QAM ASK your surgeon for instructions meloxicam 15 mg tablet 15 mg PO DAILY PRN DO NOT take the morning of surgery insulin lispro [Humalog KwikPen Insulin] 14 - 16 unit SUBCUT TIDM oxybutynin chloride 10 mg PO QAM furosemide 40 mg tablet 40 mg PO BID telmisartan 80 mg-hydrochlorothiazide 12.5 mg tablet 1 tab PO QAM telmisartan-hydrochlorothiazid 1 tab PO QAM Take morning of surgery With a small sip of water, OTHERWISE NOTHING TO EAT OR DRINK AFTER MIDNIGHT: divalproex 1,000 mg PO QAM hydralazine 50 mg PO BID tamsulosin 0.4 mg PO QAM venlafaxine 75 mg PO QAM venlafaxine 150 mg PO QAM omeprazole 20 mg capsule,delayed release 20 mg PO QAM sulfamethoxazole 800 mg-trimethoprim 160 mg tablet 1 tab PO BID Take evening before surgery hydralazine 50 mg PO BID insulin glargine U-300 conc [Toujeo SoloStar U-300 Insulin] 70 unit SUBCUT HS insulin lispro [Humalog KwikPen Insulin] 14 - 16 unit SUBCUT TIDM furosemide 40 mg tablet 40 mg PO BID sulfamethoxazole 800 mg-trimethoprim 160 mg tablet 1 tab PO BID hydralazine 25 mg PO HS Other Notes If you have any questions please call us at [phone] or [phone] or [phone] or [phone]
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
[2019-11-24 13:30] LABS: Appearance Urine Clear (Clear); Bacteria Urine Automated Negative (Negative); Bilirubin Urine Negative (Negative); Blood Urine Negative (Negative); Cast Urine Automated 0 /lpf (0-5); Color Urine Yellow; Epithelial Cell Urine Auto 0-5 /lpf (0-5); Glucose Urine UA Negative (Negative); Ketones Urine Negative (Negative); Leukocyte Esterase Urine Negative (Negative); Nitrite Urine Negative (Negative); RBC Urine Automated 0-4 /hpf (0-4); Specific Gravity Urine 1.016 (1.000-1.030); Urobilinogen Urine Negative (Negative); WBC Urine Automated 0 /hpf (0-5); pH Urine 7.5 (4.5-7.5)
[2019-11-24 13:32] LABS: Eosinophils # (auto) 0.13 K/uL (0-0.5); Hematocrit (blood only) 40.1 % (42-52); Hemoglobin 13.2 g/dL (14.0-18.0); Immature Granulocytes # (auto) 0.03 K/uL (0.00-0.02); Immature Granulocytes % (auto) 0.5 %; Lymphocytes # (auto) 1.66 K/uL (1.2-3.4); Lymphocytes % (auto) 25.5 %; Mean Corpuscular Hemoglobin 27.9 pg (25-34); Mean Corpuscular Hgb Conc 32.9 g/dL (32-36); Mean Corpuscular Volume 84.8 fL (80-100); Mean Platelet Volume 9.9 fL (7.4-10.4); Monocytes # (auto) 0.61 K/uL (0.11-0.59); Monocytes % (auto) 9.4 %; Neutrophils # (auto) 4.09 K/uL (1.4-6.5); Neutrophils % (auto) 62.6 %; Platelet Count 252 K/uL (130-400); RDW Coefficient of Variation 15.2 % (11.5-14.5); RDW Standard Deviation 47.3 fL (36.4-46.3); Red Blood Count 4.73 M/uL (4.7-6.1); White Blood Count 6.52 K/uL (4.8-10.8)
[2019-11-24 13:38] LABS: Protein Urine 1+ (Negative); Sulfosalicylic Acid Urine Positive (Negative)
[2019-11-24 13:56] LABS: Estimated Average Glucose 146 mg/dl; Hemoglobin A1C 6.7 % (4.5-5.6)
[2019-11-24 14:35] LABS: BUN Creatinine Ratio 15.8 (10-20); Calcium 9.3 mg/dl (8.5-10.1); Creatinine Clr Calc Pharmacy 63.4 ml/min; Est GFR (African American) 53.3; Potassium 3.8 mmol/L (3.5-5.1)
[~2019-12-06 10:44] MED LIST changes: -DIVA500T5 PO; -EFFSR150 PO; -EFFSR75 PO; -FLM4 PO; -GLIM4TAB2 PO; -INSDGI SC; -LISI-725 PO; +MANNITOL 25% 12.5 GM/50 ML VIAL IV ONE; -MELO-84 PO; +MIDAZOLAM HCL 1 MG/ML 2ML VIAL ONE; -NVLGI SC; -OMEP20CA9 PO; +fentaNYL citrate 100 MCG/2 ML VIAL ONE
[2019-12-06] MEDS ORDERED: CEFAZOLIN 3000MG/72.5 ML BAG IV ONE (11:39)
[2019-12-06] MEDS ORDERED: ONDANSETRON INJ 2 MG/ML 2 ML VIAL IV PRN ×2 (12:35→18:35)
[2019-12-06] MEDS ORDERED: PROMETHAZINE HCL 12.5 MG in SODIUM CHLORIDE 0.9% 50 ML IV PRN (12:35)
[2019-12-06] MEDS ORDERED: ATROPINE SULFATE 0.1 MG/ML 10ML SYR IV PRN (12:35)
[2019-12-06] MEDS ORDERED: ePHEDrine sulfate 50 MG/ML AMP IV PRN (12:35)
[2019-12-06] MEDS ORDERED: METOCLOPRAMIDE HCL INJ 5 MG/ML 2 ML VIAL IV PRN (12:35)
[2019-12-06] MEDS ORDERED: HYDROmorphone INJ 2 MG/ML SYR/VIAL IV PRN (12:35)
[2019-12-06] MEDS ORDERED: fentaNYL citrate 100 MCG/2 ML VIAL IV PRN (12:35)
--- NOTE | 2019-12-06 12:40 | History & Physical Bridge Note ---
Date of Service December 06, 2019 History & Physical Bridge Note I have examined the patient, reviewed the History & Physical and in the interval since the performance of the History & Physical I have noted the following changes of clinical significance: no changes noted
[2019-12-06] MEDS ORDERED: BUPIVACAINE 0.5 % 5 MG/1 ML MPF 30ML VIAL ONE (12:45)
[2019-12-06] MEDS ORDERED: ePHEDrine sulfate 50 MG/ML SYR ONE (14:01)
[2019-12-06] MEDS ORDERED: GLYCOPYRROLATE 0.2 MG/ML VIAL ONE ×2 (14:01→14:24)
[2019-12-06] MEDS ORDERED: ROCURONIUM BROMIDE 10 MG/ML 5 ML VIAL IV ONE ×3 (14:01→15:07)
[2019-12-06] MEDS ORDERED: LIDOCAINE HCL 2% 2 ML VIAL/AMP(20MG/ML) INFIL ONE (14:01)
[2019-12-06] MEDS ORDERED: DEXAMETHASONE SOD INJ 4 MG/ML VIAL ONE (14:01)
[2019-12-06] MEDS ORDERED: NEOSTIGMINE METHYLSULFATE 5 MG/5 ML SYR ONE (14:01)
[2019-12-06] MEDS ORDERED: PROPOFOL IV EMULSION 10 MG/ML 20 ML VIAL IV ONE (14:01)
[2019-12-06] MEDS ORDERED: ONDANSETRON INJ 2 MG/ML 2 ML VIAL ONE (14:01)
[2019-12-06] MEDS ORDERED: LARYING-O-JET KIT (LTA) ONE (14:01)
[2019-12-06] MEDS ORDERED: PHENYLEPHRINE 100MCG/ML 5ML SYR ONE (14:01)
[2019-12-06] MEDS ORDERED: HYDROmorphone INJ 2 MG/ML SYR/VIAL ONE (14:32)
[2019-12-06] MEDS ORDERED: ALBUMIN HUMAN 5% 12.5 GM/250 ML VIAL IV ONE (16:11)
[2019-12-06] MEDS ORDERED: FLOSEAL HEMOSTATIC MATRIX 5ML TOP ONE (16:22)
[2019-12-06] MEDS ORDERED: SURGICEL ABSORB HEMOSTAT 2IN X 14IN TOP ONE (16:23)
[2019-12-06] MEDS ORDERED: TISSEEL FIBRIN SEALANT 4ML TOP ONE (16:32)
[2019-12-06] MEDS ORDERED: PHENYLEPHRINE HCL 10 MG/ML VIAL ONE (17:18)
[2019-12-06 17:29] LABS: Eosinophils # (auto) 0.04 K/uL (0-0.5); Eosinophils % (auto) 0.4 %; Hematocrit (blood only) 32.6 % (42-52); Hemoglobin 10.4 g/dL (14.0-18.0); Immature Granulocytes # (auto) 0.06 K/uL (0.00-0.02); Immature Granulocytes % (auto) 0.6 %; Lymphocytes # (auto) 0.89 K/uL (1.2-3.4); Lymphocytes % (auto) 8.8 %; Mean Corpuscular Hemoglobin 27.7 pg (25-34); Mean Corpuscular Volume 86.9 fL (80-100); Mean Platelet Volume 9.1 fL (7.4-10.4); Monocytes # (auto) 0.25 K/uL (0.11-0.59); Monocytes % (auto) 2.5 %; Neutrophils # (auto) 8.88 K/uL (1.4-6.5); Neutrophils % (auto) 87.7 %; Platelet Count 224 K/uL (130-400); RDW Standard Deviation 47.8 fL (36.4-46.3); Red Blood Count 3.75 M/uL (4.7-6.1); White Blood Count 10.12 K/uL (4.8-10.8)
[2019-12-06 17:30] LABS: Mean Corpuscular Hgb Conc 31.9 g/dL (32-36)
[2019-12-06 17:33] LABS: iSTAT Creatinine 1.4 mg/dl (0.6-1.3); iSTAT Hemoglobin 10.2 g/dl (14.0-18.0); iSTAT Ionized Calcium 1.18 mmol/l (1.12-1.32); iSTAT Potassium 4.5 mmol/L (3.3-5.0)
--- NOTE | 2019-12-06 17:35 | Operative Report ---
PG Post Operative Report Pre & Post Diagnosis Operation Date: 12/06/19 12:10 Pre-Op Diagnosis: Right Renal Mass Post-Op Diagnosis: Right Renal Mass I identified the patient and participated in the time-out.: Yes Procedure Operation Date: 12/06/19 12:10 Actual Procedures p Robotic-assisted Laparoscopic Right Partial Nephrectomy(Right) - Quintin Sorensen MD Surgeon Veto Sorensen MD Maintenance Mechanic Technician Huang Fritz; Aimee Daniels; Tara Sanderson Estimated Blood Loss 500 Findings Consistent with Post-Op Diagnosis Specimens Fat over tumor Renal mass Description of Procedure Patient was identified in the preoperative holding area, appropriate informed consents were reviewed and completed and he was transported to the operating suite. Upon arrival received appropriate preoperative antibiotics in the form of Ancef. Adequate general anesthesia was achieved and he was placed in the left side down right side up lateral decubitus position. To begin the case I passed a Veress needle into the right upper quadrant and insufflated his abdomen to 15 mmHg. I placed a 12 mm Visiport lateral to the rectus border approximately 5 cm superior to the umbilicus. Full inspection was conducted revealing no evidence of trauma from the needle passage. There also was no significant adhesive disease. I proceeded to place 2 robotic ports on either side of the initial port. I also placed 2- 12 mm distance closer to the midline. A 5 mm subxiphoid port was placed as well. I docked the robot and began to mobilize the colon. Of note, immediately upon performing laparoscopy it was evident that there was limited space within the abdomen. This seemed to be because of a significant amount of Gerota's fascia overlying the kidney. As I mobilized the colon I was able to identify the duodenum and kocherized the duodenum. Unfortunately, the copious amount of fat around the kidney made this quite challenging as it continued to fill the space lateral to the duodenum and overlying the IVC. This compromised my ability to adequately see the IVC and renal vein. Rather than risking incidental injury I elected to debulk the majority of the anterior fat from the kidney. With care I began incising through the fat until I encountered renal parenchyma. I then shaved off a layer of fat that was approximately 8-10 cm in thickness overlying the entire anterior surface of the kidney. Additionally removed some fat from the medial aspect of the kidney with extreme caution to avoid incidental encroachment upon the vessels. This substantially improved the amount of space with which we could work. I was able to then dissect inferior to the kidney and identify the gonadal vein. I saw the location where this pierced into the IVC. Of note, there also was a branch that appeared to be extending from the renal vein to the gonadal. This was transected after controlling proximally and distally with bipolar jared ctrocautery. I then dissected a window lateral to the IVC and onto the psoas muscle and used it to elevate the kidney. Dissection in this area was also quite challenging because of the copious amount of fat that remained posterior to the kidney but I was successfully able to extend the renal vessels and identify the renal artery posterior to the renal vein. I then turned my attention to exposure of the mass. With care, I dissected superior to the renal vein and lateral to the IVC. I attempted to split the space between the adrenal gland and the kidney. I performed a laparoscopic ultrasound and identify the exact location of the tumor and then gradually work my way around it circumferentially. He had very sticky fat that was adherent to the renal capsule so identifying perfect renal parenchyma was impossible. I did feel that I identified an appropriate border around the mass circumferentially. At that time I turned my attention to controlling the renal vessels in preparation for excision of the mass. A solitary dose of 12.5 g of mannitol was administered and then the renal artery clamped. A second clamp was placed across the renal vein. I then turned my attention to the mass and began to excise in the area that I previously marked for excision. There were several large vessels with the deep portion of this resection site, however bleeding was controlled. Unfortunately, we had a malfunction of the suction instruments which cost several moments of time. We ultimately regained control after restoring her suction I was able to perform renal reconstruction with a series of 3V lock sutures crossing the defect and utilizing a sliding clip technique. At that time I unclamped the renal hilum. Warm ischemia time was 17 minutes. Hemostasis from the renal resection site was excellent. There was still bleeding superior to the kidney and on closer inspection we noted a small tear in the liver capsule lateral to the area we were working. I suspect this occurred in the midst of trying to restore suction function and attempting to suck underneath a small pool of blood. I was able to control this bleeding by placing FloSeal coagulant through the defect and covering it with a sheet of Surgicel and then Tisseel. The same procedure was utilized over the renal defect. At that time hemostasis was quite good. The hilar structures were intact and not bleeding. I collected the specimen in an Endo Catch bag and I began to extract through the lower itinerant teacher assistant port. I expanded this port to allow extraction of the large specimen of fat that had been resected from the anterior surface of the kidney/overlying the tumor. A smaller fat cap immediately medial and on top of the tumor was also removed. I then proceeded to close the fascial incisions utilizing 0 Vicryl. Gina's fascia was closed with a 2-0 Vicryl from the largest incision. Chana were used to reapproximate the skin incisions. A drain was guided into the left lateralmost robotic port and sutured in place with a 2-0 silk. Half percent Marcaine was used to infiltrate all incision sites. He was subsequently extubated and taken to the PACU in stable condition. The only known complication was a small laceration of the liver capsule which was controlled prior to the conclusion of the case and did not alter our normal course of the case. Huang Fritz assisted me throughout the case. Tara Sanderson and Aimee Daniels were scrubbed and present assisting throughout many portions of the case from incision to closure. I attest to the content of the Intraoperative Record and any orders documented therein. Any exceptions are noted below.
[2019-12-06 17:46] LABS: BUN Creatinine Ratio 13.8 (10-20); Calcium 8.1 mg/dl (8.5-10.1); Creatinine Clr Calc Pharmacy 62.6 ml/min; Est GFR (African American) 52.5; Est GFR (Non-African American) 45.3; Potassium 4.4 mmol/L (3.5-5.1)
--- NOTE | 2019-12-06 18:04 | Anesthesiology Progress Note ---
Date of Service December 06, 2019 Anesthesia Post Procedure Vital Signs Vital Signs: Temp Pulse Pulse Resp BP BP Pulse Ox 12/06/19 17:55 36.4 C L 77 16 107/51 L 93 12/06/19 17:45 78 15 109/55 L 93 12/06/19 17:35 77 16 116/55 L 94 12/06/19 17:25 78 17 122/63 95 12/06/19 17:15 77 18 118/63 95 12/06/19 17:08 36.0 C L 78 21 123/52 L 95 12/06/19 11:22 36.8 C 81 18 154/74 H 94 Transfer of Care Handoff Completed per policy Notes Mental Status: alert / awake / arousable Patient Amnestic to Procedure: Yes Nausea / Vomiting: adequately controlled Pain: adequately controlled Airway Patency, RR, SpO2: stable & adequate BP & HR: stable & adequate Hydration State: stable & adequate Anesthetic Complications: no major complications apparent
[2019-12-06] MEDS ORDERED: OXYCODONE HCL IR 5 MG TAB (IMMEDIATE RELEASE) PO PRN ×2 (18:35)
[2019-12-06] MEDS ORDERED: MoRPHine SULFATE 2 MG/ML CARP IV PRN ×2 (18:35)
[2019-12-06] MEDS ORDERED: PHARMACY GLYCEMIC MGMT CONSULT PRN (19:00)
[2019-12-06] MEDS: LACTATED RINGER'S 1,000 ML IV SCH (19:14)
[2019-12-06] MEDS ORDERED: NovoLIN-N (NPH) PER UNIT CHARGE SQ ONE (20:00)
[2019-12-06] MEDS: CEFAZOLIN 2000MG 2,000 MG/15 ML SYR IV SCH (20:57)
[2019-12-06] MEDS ORDERED: HydrALAZINE TAB 50 MG TAB PO SCH (21:00)
[2019-12-06] MEDS ORDERED: INSULIN GLARGINE SOLOSTAR 100 UNITS/ML 3 ML PEN SC ONE (21:00)
[2019-12-06] MEDS: INSULIN ASPART 100 UNITS/ML 3 ML PEN SC SCH ×2 (21:04→23:59)
[2019-12-06] MEDS: ACETAMINOPHEN 1000 MG/100 ML IV IV SCH (21:54)
[2019-12-07] MEDS: LACTATED RINGER'S 1,000 ML IV SCH (02:35)
[2019-12-07] MEDS: INSULIN ASPART 100 UNITS/ML 3 ML PEN SC SCH ×5 (03:48→22:21)
[2019-12-07] MEDS: CEFAZOLIN 2000MG 2,000 MG/15 ML SYR IV SCH (05:04)
[2019-12-07] MEDS: ACETAMINOPHEN 1000 MG/100 ML IV IV SCH ×3 (05:04→22:28)
[2019-12-07 06:34] LABS: Hematocrit (blood only) 25.9 % (42-52); Hemoglobin 8.6 g/dL (14.0-18.0); Immature Granulocytes # (auto) 0.04 K/uL (0.00-0.02); Immature Granulocytes % (auto) 0.5 %; Lymphocytes # (auto) 0.73 K/uL (1.2-3.4); Lymphocytes % (auto) 8.6 %; Mean Corpuscular Hemoglobin 28.1 pg (25-34); Mean Corpuscular Hgb Conc 33.2 g/dL (32-36); Mean Corpuscular Volume 84.6 fL (80-100); Mean Platelet Volume 9.2 fL (7.4-10.4); Monocytes # (auto) 0.84 K/uL (0.11-0.59); Monocytes % (auto) 9.9 %; Neutrophils # (auto) 6.86 K/uL (1.4-6.5); Platelet Count 255 K/uL (130-400); RDW Coefficient of Variation 15.1 % (11.5-14.5); RDW Standard Deviation 46.6 fL (36.4-46.3); Red Blood Count 3.06 M/uL (4.7-6.1); White Blood Count 8.47 K/uL (4.8-10.8)
[2019-12-07 07:04] LABS: BUN Creatinine Ratio 15.5 (10-20); Creatinine Clr Calc Pharmacy 49.6 ml/min; Est GFR (African American) 39.6; Est GFR (Non-African American) 34.2; Potassium 4.9 mmol/L (3.5-5.1)
[2019-12-07] MEDS: HydrALAZINE TAB 50 MG TAB PO SCH ×2 (08:14→13:22)
[2019-12-07] MEDS: DIVALPROEX DELAY RELEASE 500 MG TAB PO SCH (08:15)
[2019-12-07] MEDS: OXYBUTYNIN CHLORIDE XL 5 MG TABCR PO SCH (08:15)
[2019-12-07] MEDS: PANTOprazole 40 MG TAB PO SCH (08:16)
[2019-12-07] MEDS: VENLAFAXINE HCL XR 75 MG CAPXR PO SCH (08:16)
[2019-12-07] MEDS: TAMSULOSIN HCL 0.4 MG CAP PO SCH (08:16)
[2019-12-07] MEDS: VENLAFAXINE HCL XR 150 MG CAPXR PO SCH (08:16)
--- NOTE | 2019-12-07 08:17 | Anesthesiology Progress Note ---
Date of Service December 07, 2019 Anesthesia Post Procedure Vital Signs Vital Signs: Temp Pulse Pulse Resp BP BP Pulse Ox 12/07/19 06:19 36.7 C 87 20 125/65 94 12/07/19 02:58 36.7 C 98 H 20 133/64 96 12/06/19 23:00 37 C 98 H 18 107/72 94 12/06/19 21:30 36.7 C 100 H 16 131/71 94 12/06/19 20:40 36.7 C 100 H 16 119/70 96 12/06/19 19:40 36.5 C 90 15 94/59 L 96 12/06/19 19:13 36.4 C L 86 16 101/62 96 12/06/19 18:39 36.4 C L 84 15 100/52 L 94 12/06/19 18:25 82 14 101/68 95 12/06/19 18:15 81 15 103/47 L 95 12/06/19 18:05 79 16 111/56 L 94 12/06/19 17:55 36.4 C L 77 16 107/51 L 93 12/06/19 17:45 78 15 109/55 L 93 12/06/19 17:35 77 16 116/55 L 94 12/06/19 17:25 78 17 122/63 95 12/06/19 17:15 77 18 118/63 95 12/06/19 17:08 36.0 C L 78 21 123/52 L 95 12/06/19 11:22 36.8 C 81 18 154/74 H 94 Pain Intensity Right Abdomen: Pain Intensity: 1 Notes Mental Status: alert / awake / arousable Patient Amnestic to Procedure: Yes Nausea / Vomiting: adequately controlled Pain: adequately controlled Airway Patency, RR, SpO2: stable & adequate BP & HR: stable & adequate Hydration State: stable & adequate Anesthetic Complications: no major complications apparent and Pt Satisfied with anesthetic care
--- NOTE | 2019-12-07 10:28 | Urology Progress Note ---
Date of Service December 07, 2019 Assessment & Plan (1) Right kidney mass: Postop day #1 status post right robotic partial nephrectomy Hemoglobin has decreasedchallenging case with significant blood loss -findings are as would be anticipated Hemodynamically stable Other labs as would be expected with slight increase in creatinine which I believe is related to surgery directly and will resolve with time Thompson out this morning, Hep-Lock IV fluids, likely remove drain later today Attempt to get out of bed and ambulatelimited ambulation at baseline Admission and Anticipated Discharge Date Admission Date: December 06, 2019 Subjective No major issues overnight His urine continues to drain clear He denies any significant abdominal pain Reports he slept well Hemoglobin decreased slightly this morning as would be expected Overall seems to be recovering appropriately Physical Exam Physical Exam: Incisions appropriate CHANELL serosanguineous Urine clear Abdomen soft Results & Data ([facility]) Vital Signs (Past 12 Hours) Vital Signs Temp Pulse Resp BP Pulse Ox 12/07/19 06:19 36.7 C 87 20 125/65 94 12/07/19 02:58 36.7 C 98 H 20 133/64 96 12/06/19 23:00 37 C 98 H 18 107/72 94 PG Care Time/CCT Total # of Minutes Spent Total Time Spent with Patient: Total time spent is greater than 50% in coordination of care (as documented) at patient's floor/unit and/or counseling patient: Coding Level of Care Code None Diagnoses Right kidney mass N28.89
--- NOTE | 2019-12-07 13:11 | Pharmacy Report ---
Pharmacy Glycemic Short Note 2 - Date of Service December 07, 2019 - Glycemic Short BSG Results (Last 24 hours): 12/06/19 12/06/19 12/06/19 16:29 17:11 17:17 Glucose 200 H POC Glucose 203 H POC Glucose (other) 185 H 12/06/19 12/06/19 12/06/19 19:17 21:02 23:38 Glucose POC Glucose 239 H 286 H 237 H POC Glucose (other) 12/07/19 12/07/19 12/07/19 03:46 06:04 08:01 Glucose 144 H POC Glucose 210 H 132 H POC Glucose (other) 12/07/19 11:32 Glucose POC Glucose 90 POC Glucose (other) OUTPATIENT ANTIDIABETIC REGIMEN: * Toujeo 70 units SQ qHS * Humalog 14-16 units SQ TID with meals * A1c = 6.7% (11/24/19) ASSESSMENT: * Ramy is a 69 yo male POD #1 s/p right robotic partial nephrectomy. Scr is trending upward. * Last evening he was given Lantus 56 units (20% reduction required for first dose when transition from Toujeo -> Lantus) and 15 units of NPH * Fasting BSG of 132 mg/dL is at goal. Will order Lantus dose per scale. * Novolog carb coverage was tightened this morning based on multiple BSGs in the mid-high 200s last evening, however this lead to BSG below goal at lunchtime today. I will loosen carb ratio back to 5, which is equivalent to his home dose of ~112-118 units split 50/50 basal/bolus. PLAN FOR INPATIENT GLYCEMIC CONTROL: * Basal insulin * Lantus per scale SQ HS: * 56 units if BSG is less than 160 mg/dL * 60 units if BSG is 160 mg/dL or more * Bolus insulin * NovoLog per scale ACHS or Q6hrs while NPO * Goal Range: Low 110 mg/dL - High 140 mg/dL * Correction Factor: 15 mg/dL/unit * Nutritional / Prandial insulin per carb ratio of 1 unit per 5 grams CHO consumed
[2019-12-07] MEDS ORDERED: INSULIN GLARGINE SOLOSTAR 100 UNITS/ML 3 ML PEN SC SCH (21:00)
[2019-12-08] MEDS: ACETAMINOPHEN 1000 MG/100 ML IV IV SCH ×4 (05:29→21:25)
[2019-12-08] MEDS: PANTOprazole 40 MG TAB PO SCH (05:29)
[2019-12-08 05:46] LABS: Basophils # (auto) 0.01 K/uL (0-0.2); Basophils % (auto) 0.1 %; Eosinophils # (auto) 0.06 K/uL (0-0.5); Eosinophils % (auto) 0.7 %; Hematocrit (blood only) 23.5 % (42-52); Hemoglobin 7.8 g/dL (14.0-18.0); Immature Granulocytes # (auto) 0.03 K/uL (0.00-0.02); Immature Granulocytes % (auto) 0.4 %; Lymphocytes # (auto) 1.65 K/uL (1.2-3.4); Lymphocytes % (auto) 20.3 %; Mean Corpuscular Hemoglobin 28.3 pg (25-34); Mean Corpuscular Hgb Conc 33.2 g/dL (32-36); Mean Corpuscular Volume 85.1 fL (80-100); Mean Platelet Volume 9.1 fL (7.4-10.4); Monocytes # (auto) 0.89 K/uL (0.11-0.59); Monocytes % (auto) 10.9 %; Neutrophils % (auto) 67.6 %; Platelet Count 209 K/uL (130-400); RDW Coefficient of Variation 15.3 % (11.5-14.5); RDW Standard Deviation 47.9 fL (36.4-46.3); Red Blood Count 2.76 M/uL (4.7-6.1); White Blood Count 8.14 K/uL (4.8-10.8)
[2019-12-08] MEDS ORDERED: CEFAZOLIN 3000MG 72.5 ML IV SCH (06:00)
[2019-12-08] MEDS ORDERED: LR 15ML/HR IV SCH (06:00)
[2019-12-08 06:19] LABS: Anisocytosis Present; Basophilic Stippling 1+
[2019-12-08 06:22] LABS: BUN Creatinine Ratio 22.3 (10-20); Calcium 7.8 mg/dl (8.5-10.1); Creatinine Clr Calc Pharmacy 59.5 ml/min; Est GFR (African American) 49.4; Est GFR (Non-African American) 42.6; Potassium 4.3 mmol/L (3.5-5.1)
[2019-12-08] MEDS: VENLAFAXINE HCL XR 150 MG CAPXR PO SCH (08:15)
[2019-12-08] MEDS: DIVALPROEX DELAY RELEASE 500 MG TAB PO SCH (08:15)
[2019-12-08] MEDS: VENLAFAXINE HCL XR 75 MG CAPXR PO SCH (08:15)
[2019-12-08] MEDS: TAMSULOSIN HCL 0.4 MG CAP PO SCH (08:15)
[2019-12-08] MEDS: HydrALAZINE TAB 50 MG TAB PO SCH ×2 (08:15→14:29)
[2019-12-08] MEDS: OXYBUTYNIN CHLORIDE XL 5 MG TABCR PO SCH (08:15)
--- NOTE | 2019-12-08 09:00 | Urology Progress Note ---
Date of Service December 08, 2019 Assessment & Plan (1) Right kidney mass: 69 year-old male patient status post right robotic partial nephrectomy secondary to right renal mass. -POD #2 right robotic partial nephrectomy. -He is recovering appropriately. -Remains afebrile. -Hemoglobin has decreased however creatinine has improved, continue to monitor. -Encourage patient to ambulate to bedside/chair with caution and assist given fall last evening, limited ambulation at baseline. -Plan to discontinue CHANELL today, order entered. -Will plan on continued observation, repeat labs in the morning and reassess. -If labs improved in the morning and he continues to feel well, possible discharge tomorrow. -He is in agreement with above plan. Subjective POD #2 right robotic partial nephrectomy Feeling well overall, he slept well overnight. Denies significant pain, receiving routine Tylenol. Has been passing flatus, no bowel movement since procedure. He is urinating spontaneously without difficulty. Denies dysuria or hematuria, feels he is emptying his bladder well. Denies nausea or vomiting. Denies fevers or chills. Per nursing notes, did fall off bedside commode last evening, landing on his buttocks, with no notable injuries. He denies dizziness or lightheadedness. Chart review: Afebrile Wbc 8.14 Hgb 7.8 (previously 8.6) Creatinine 1.64 (previously 1.97) Urine output overnight 600cc CHANELL output 70 cc Denies additional urologic concerns. Review of Systems Constitutional: as per Subjective / HPI; no fever and no chills Respiratory: no cough and no dyspnea Cardiovascular: + edema (Chronic left leg); no chest pain Gastrointestinal: as per Subjective / HPI; no nausea and no vomiting Genitourinary: + as per Subjective / HPI Neurologic: as per Subjective / HPI Physical Exam Constitutional: well developed and well nourished; no acute distress and not ill appearing Respiratory: normal respiratory effort and able to speak in complete sentences; no respiratory distress and no audible wheezes Cardiovascular: Extremities: + edema (+1 pitting edema to left lower extremity) Gastrointestinal (Abdomen): Inspection/Auscultation: abdomen not distended Percussion/Palpation: abdomen soft; no guarding Skin: CHANELL draining serosanguineous drainage. Incisions to abdomen appropriate, dressing intact without significant drainage. No redness or warmth present. Psychiatric: Orientation: alert, oriented x 3 and cooperative Affect: euthymic affect Genitourinary: no CVA tenderness Results & Data ([facility]) Vital Signs (Past 12 Hours) Vital Signs Temp Pulse Resp BP BP Pulse Ox 12/08/19 07:07 36.9 C 85 20 122/62 92 12/07/19 23:30 36.8 C 84 20 148/68 H 93 12/07/19 22:15 89 144/66 H 91 PG Care Time/CCT Total # of Minutes Spent Total Time Spent with Patient: Total time spent is greater than 50% in coordination of care (as documented) at patient's floor/unit and/or counseling patient: Coding Level of Care Code None Diagnoses Right kidney mass N28.89
[2019-12-08] MEDS: INSULIN ASPART 100 UNITS/ML 3 ML PEN SC SCH ×4 (09:03→20:32)
--- NOTE | 2019-12-08 11:22 | Pharmacy Report ---
Glycemic Control Progress Note - Date of Service December 08, 2019 - Scope Glycemic Pharmacist consulted for glycemic control to write orders per [facility] inpatient glycemic control protocol. - Objective Accuchecks BSG(last 24 hours):: 12/07/19 12/07/19 12/07/19 11:32 17:04 21:30 Glucose POC Glucose 90 158 H 145 H 12/08/19 12/08/19 05:14 08:25 Glucose 92 POC Glucose 103 H HbA1c:: Hemoglobin A1c 6.7 % (4.5-5.6) H 11/24/19 12:05 - Recent Pertinent Medications The patient is currently receiving: * Basal insulin: Lantus 56 units every 24 hours * Correctional Insulin: Novolog Correction per scale ACHS Goal Range: Low 110 mg/dL - High 140 mg/dL Correction Factor: 15 mg/dL/unit * Prandial insulin: Per carb ratio of 1 unit per 5 grams CHO consumed - Outpatient Anti-Diabetic Meds Toujeo 70 HS Humalog 14-16 TIDM - Assessment & Plan ASSESSMENT: * See progress note from 12/07/2019 for more background info, in short: * Pt receiving SQ basal bolus insulin regimen for hyperglycemia secondary to baseline DM (outpatient regimen on hold), Patient is POD 2. * Patient is currently receiving an average of 85 units of insulin per day * 56 units of basal insulin * 29 units of prandial/correctional insulin * BSGs ranging 90 - 158 mg/dl over the past 24hrs * Changes needed to insulin regimen: * AM Fasting BSG = 103 mg/dl. This is slightly below goal range for patient based on inpatient targets and co-morbidities. Basal insulin also represents about 2/3 of total daily insulin. Reduce basal by 20% to 45 units. * Post-prandial BSGs are in range therefore no changes needed to CF/CR. * Total daily dose = ~70-80 units. PLAN FOR INPATIENT GLYCEMIC CONTROL: * Decreasing Lantus to 45 units SQ HS * Continuing correction factor of 15 mg/dl/unit * Continuing carb ratio of 1 unit per 5 grams CHO consumed * Continuing goal range of Low 110 mg/dL - High 140 mg/dL RECOMMENDATIONS FOR DISCHARGE: * Patient's HbA1C is within goal - can continue home regimen as long as he does not have any hypoglycemia at home. * Goal HbA1C <7% * Current HbA1C is 6.7% Thank you.
[2019-12-08] MEDS ORDERED: INSULIN GLARGINE SOLOSTAR 100 UNITS/ML 3 ML PEN SC SCH (21:00)
[2019-12-09] MEDS: ACETAMINOPHEN 1000 MG/100 ML IV IV SCH ×2 (05:44→13:31)
[2019-12-09 06:09] LABS: Eosinophils # (auto) 0.07 K/uL (0-0.5); Eosinophils % (auto) 0.9 %; Hemoglobin 7.4 g/dL (14.0-18.0); Immature Granulocytes # (auto) 0.04 K/uL (0.00-0.02); Immature Granulocytes % (auto) 0.5 %; Lymphocytes # (auto) 1.32 K/uL (1.2-3.4); Lymphocytes % (auto) 17.3 %; Mean Corpuscular Hemoglobin 28.1 pg (25-34); Mean Corpuscular Hgb Conc 33.6 g/dL (32-36); Mean Corpuscular Volume 83.7 fL (80-100); Mean Platelet Volume 9.2 fL (7.4-10.4); Monocytes # (auto) 0.73 K/uL (0.11-0.59); Monocytes % (auto) 9.5 %; Neutrophils # (auto) 5.49 K/uL (1.4-6.5); Neutrophils % (auto) 71.8 %; Platelet Count 198 K/uL (130-400); RDW Coefficient of Variation 15.2 % (11.5-14.5); RDW Standard Deviation 46.4 fL (36.4-46.3); Red Blood Count 2.63 M/uL (4.7-6.1); White Blood Count 7.65 K/uL (4.8-10.8)
[2019-12-09 06:32] LABS: RBC Morphology Unremarkable
[2019-12-09 06:50] LABS: BUN Creatinine Ratio 22.4 (10-20); Calcium 7.9 mg/dl (8.5-10.1); Creatinine Clr Calc Pharmacy 66.4 ml/min; Est GFR (African American) 56.4; Est GFR (Non-African American) 48.7; Potassium 4.5 mmol/L (3.5-5.1)
[2019-12-09] MEDS: INSULIN ASPART 100 UNITS/ML 3 ML PEN SC SCH ×3 (08:23→17:30)
[2019-12-09] MEDS: VENLAFAXINE HCL XR 150 MG CAPXR PO SCH (08:24)
[2019-12-09] MEDS: HydrALAZINE TAB 50 MG TAB PO SCH ×2 (08:24→13:31)
[2019-12-09] MEDS: OXYBUTYNIN CHLORIDE XL 5 MG TABCR PO SCH (08:24)
[2019-12-09] MEDS: PANTOprazole 40 MG TAB PO SCH (08:24)
[2019-12-09] MEDS: DIVALPROEX DELAY RELEASE 500 MG TAB PO SCH (08:24)
[2019-12-09] MEDS: TAMSULOSIN HCL 0.4 MG CAP PO SCH (08:24)
[2019-12-09] MEDS: VENLAFAXINE HCL XR 75 MG CAPXR PO SCH (08:24)
--- NOTE | 2019-12-09 08:37 | Urology Progress Note ---
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 Postop day #3 status post right robotic partial nephrectomy Pathology returned overnight He had a focal positive margin but otherwise a T1a tumor Recovery on pace His kidney function has returned to preoperative baseline His hemoglobin is 7.2 and he is hemodynamically stable Likely will require rehab process secondary to his limited mobility preop, PT OT eval appreciated and discharge planning pending their evaluation Admission and Anticipated Discharge Date Admission Date: December 06, 2019 Subjective Continues to progress appropriately after his right robotic partial nephrectomy He denies severe pain He feels anxious to go home His lab work is continued to improve from a kidney standpoint He has had a gradual drift of his H&H but is stable from a hemodynamic standpoint and I do not believe warrants any consideration of transfusion Review of Systems Review of Systems: All systems reviewed & are unremarkable except as noted in HPI & below Physical Exam Physical Exam: All dressings removed Chana in place Healthy-appearing incisions that seem to be healing appropriately Constitutional: well developed and well nourished Respiratory: no respiratory distress Cardiovascular: Extremities: no pedal edema Gastrointestinal (Abdomen): Inspection/Auscultation: abdomen normal to inspection Results & Data ([facility]) Vital Signs (Past 12 Hours) Vital Signs Temp Pulse Resp BP Pulse Ox 12/09/19 07:02 36.8 C 77 20 148/73 H 96 12/08/19 23:31 36.9 C 89 20 147/72 H 94 PG Care Time/CCT Total # of Minutes Spent Total Time Spent with Patient: Total time spent is greater than 50% in coordination of care (as documented) at patient's floor/unit and/or counseling patient: Coding Level of Care Code None Diagnoses Clear cell carcinoma of right kidney C64.1
--- NOTE | 2019-12-09 09:09 | Pharmacy Report ---
Glycemic Control Progress Note - Date of Service December 09, 2019 - Scope Glycemic Pharmacist consulted for glycemic control to write orders per [facility] inpatient glycemic control protocol. - Objective Accuchecks BSG(last 24 hours):: 12/08/19 12/08/19 12/08/19 12:07 16:20 20:05 Glucose POC Glucose 100 H 112 H 142 H 12/09/19 12/09/19 05:20 08:22 Glucose 90 POC Glucose 101 H HbA1c:: Hemoglobin A1c 6.7 % (4.5-5.6) H 11/24/19 12:05 - Recent Pertinent Medications The patient is currently receiving: * Basal insulin: Lantus 45 units every 24 hours * Correctional Insulin: Novolog Correction per scale ACHS Goal Range: Low 110 mg/dL - High 140 mg/dL Correction Factor: 18 mg/dL/unit * Prandial insulin: Per carb ratio of 1 unit per 6 grams CHO consumed - Outpatient Anti-Diabetic Meds Toujeo 70 units HS Humalog 14-16 units TIDM - Assessment & Plan ASSESSMENT: * See progress note from 12/07/2019 for more background info, in short: * Pt receiving SQ basal bolus insulin regimen for hyperglycemia secondary to baseline DM (outpatient regimen on hold). Patient is POD 3 for R partial nephrectomy. * Patient is currently receiving an average of 67 units of insulin per day * 45 units of basal insulin * 22 units of prandial/correctional insulin * BSGs ranging 100 - 142 mg/dl over the past 24hrs * Changes needed to insulin regimen: * AM Fasting BSG = 101 mg/dl. This is slightly below goal range for patient based on inpatient targets and co-morbidities. Therefore Basal insulin will be decreased by additional 10% to 40 units tonight. * Post-prandial BSGs are in range therefore no changes needed to CF/CR. * Total daily dose = 60-70 units. Decreased insulin appropriately PLAN FOR INPATIENT GLYCEMIC CONTROL: * Decreasing Lantus to 40 units SQ HS * Continuing correction factor of 18 mg/dl/unit * Continuing carb ratio of 1 unit per 6 grams CHO consumed * Continuing goal range of Low 110 mg/dL - High 140 mg/dL RECOMMENDATIONS FOR DISCHARGE: * Patient's HbA1C is within goal - can continue home regimen as long as he does not have any hypoglycemia at home. * Goal HbA1C <7% * Current HbA1C is 6.7% Thank you.
[2019-12-09] MEDS ORDERED: INSULIN GLARGINE SOLOSTAR 100 UNITS/ML 3 ML PEN SC SCH (21:00)
--- NOTE | 2019-12-12 08:05 | Discharge Summary ---
Date of Service December 12, 2019 Admission HPI Per Admitting Provider Right upper pole renal mass presenting for robotic assisted partial nephrectomy Principal Diagnosis Clear-cell renal cell carcinoma Discharge Data Allergies Allergy/AdvReac Type Severity Reaction Status Date / Time naproxen Allergy Hives Verified 12/06/19 11:10 Procedures Performed Operation Date: 12/06/19 12:10 Actual Procedures p Robotic-assisted Laparoscopic Right Partial Nephrectomy(Right) - Quintin Sorensen MD Hospital Course (1) Clear cell carcinoma of right kidney: Admitted for right robotic partial nephrectomy. Details of the procedure as dictated previously in the operative report. He had some blood loss during surgery and subsequently had a drop in his hemoglobin in the postoperative time period. He remained hemodynamically stable throughout did not require blood transfusion. He did have an expected bump in his creatinine immediately postoperatively but this began to correct on postoperative day #2. On postoperative day #3 he was deemed stable for discharge home was discharged to a rehab facility. Drains and catheters have been removed prior to discharge. Total Time Total Time Spent Total Time Spent (In Minutes): 20 Total Time Includes: Examination of the Patient, Discharge Planning, Medication Reconciliation, Communication With Other Providers and Other Discharge Plan Discharge Items Patient Disposition: Transfer Inpatient Rehab Fac Reason For Visit: Renal Mass Discharge Diagnosis: Renal mass Condition on Discharge: Good Activity: Per Instructions section Lifting: No more than 25 pounds Bathing Comment: No soaking/tub baths, okay to shower. Sexual Activity: Wait until after follow-up appointment Exercise/Sports: Wait until after follow-up appointment Driving/Machine Use: Do not drive while on narcotic pain medication Non-emergency contact: Urologist Call non-emergency contact if: you have any medication questions, your symptoms worsen, your pain is not controlled, your pain is worsening, your pain is unusual for you, your pain is concerning for you, you have a fever, your temperature is above 101, your wound has increased redness and your wound has increased drainage Follow-up/Referrals: Quintin Sorensen MD [Physician] - 12/21/19 1:00 pm Selvin Erickson [Primary Care Provider] - Diet: Carb Consistent or DM2 Addtl Attending Provider Instructions: Please take all medications as prescribed and keep all follow-ups as scheduled. Please call our office at [phone] with any questions, concerns or need to reschedule appointments for any reason. We are happy to assist you. Recovering at home: We recommend having someone with you for the first few days after surgery to help care for you. It is okay to shower tomorrow. Please avoid swimming, bathing or using hot tub until incisions are well healed. Avoid driving until you are not requiring pain medication any further. Walk at least a few times a day. Increase your distance, as you feel able. Stairs in your home are okay. Please avoid strenuous or sexual activity until your follow-up. We recommend using stool softener (i.e. Colace) to prevent constipation and straining, especially the first two weeks post operatively. Call [facility] at [phone] if you experience: Chest pain or trouble breathing (call 350 or go to the hospital). Fever of 101F or higher Symptoms of infection at incision site, including redness or swelling, warmth, or bad-smelling drainage If you have catheter, and you notice: o Bloody urine or drainage that is dark red or has large clots (Please remember a small amount of blood is normal) o No drainage from the catheter for more than 6 hours o The catheter comes out of your bladder Pain that is not controlled with medicines Pending Studies at Discharge: No Stand-Alone Forms: My [employer], Smoking Cessation Skilled Items Patient informed of condition?: Yes DNR: No Discharge Level of Care: Acute rehab Communicable Disease: No Discharge Prognosis: Stable Lines: None Urinary Catheter: No Medications and DC Order Prescriptions: New oxycodone 5 mg tablet 5 mg PO Q6H PRN (Reason: pain) Qty: 20 RF: 0 Continued omeprazole 20 mg capsule,delayed release(DR/EC) 20 mg PO QAM RF: 0 telmisartan-hydrochlorothiazid [Micardis HCT] 80-12.5 mg tablet 1 tab PO QAM RF: 0 venlafaxine 75 mg capsule,extended release 24hr 75 mg PO QAM RF: 0 oxybutynin chloride 10 mg tablet extended release 24hr 10 mg PO QAM RF: 0 venlafaxine 150 mg capsule,extended release 24hr 150 mg PO QAM RF: 0 hydralazine 25 mg tablet 50 mg PO BID RF: 0 divalproex 500 mg tablet,delayed release (DR/EC) 1,000 mg PO QAM RF: 0 tamsulosin 0.4 mg capsule 0.4 mg PO QAM RF: 0 insulin lispro [Humalog KwikPen Insulin] 100 unit/mL insulin pen 14 - 16 unit SUBCUT TIDM RF: 0 Toujeo SoloStar U-300 Insulin 300 unit/mL (1.5 mL) insulin pen 70 unit SUBCUT HS RF: 0 furosemide 40 mg tablet 40 mg PO BID RF: 0 meloxicam 15 mg tablet 15 mg PO DAILY PRN (Reason: Pain) RF: 0 hydralazine 25 mg Tablet 25 mg PO HS RF: 0 Discharge Orders: Discharge Order (Routine); Ordered 12/09/19 Ordered By: Kyrie Andrew/Other Patient Handouts: Managing Type 2 Diabetes Admission Data Admit Date/Time: 12/06/19 17:08 Attending Provider: Quintin Sorensen Admit Provider: Quintin Sorensen Primary Care Provider: Selvin Erickson Other Providers: [facility] Other Interventions: Discharge Summary Assessment (RN) Last Done: 12/09/19 16:09 Coding Level of Care Code D/C Day Management <30 mins Diagnoses Clear cell carcinoma of right kidney C64.1
== END 2019-12-09 18:31 | DRG 657 ==
LOC: ASU 10:44 → 3W 17:08

== ENCOUNTER 2023-01-21 22:46 | Inpatient (IN) ==
[2023-01-21] MEDS ORDERED: ALBUT/IPRATROP 3MG/0.5MG NEB 3 ML VIAL NEB STA (23:24)
--- NOTE | 2023-01-21 23:24 | Emergency Department Note ---
Impression & Plan Pneumonia ADMIT ED Provider Note HPI: History obtained from patient. The patient is a 72-year-old gentleman with history of chronic kidney disease, BPH, diabetes, presents emergency department with a chief complaint of shortness of breath. Patient states his symptoms began several hours prior to arrival and they seem to have slowly worsened. On arrival here to the ED the patient had borderline oxygen saturations at about 91% with some mild increased work of doug athing and therefore was placed on nonrebreather mask and administered a breathing treatment. Patient is also noted to be febrile on arrival at 38.1, mildly tachycardic but otherwise with stable blood pressure. Patient states he has some mild chest discomfort on the left side of his chest. ROS: - Per HPI Differential Diagnosis: Pneumonia, viral upper respiratory infection to include COVID-19 infection, influenza A infection, acute coronary syndrome, pulmonary embolism, CHF exacerbation with dyspnea, COPD exacerbation, amongst other potential pathologies. *Outpatient medications and allergy history reviewed. *Pertinent external medical records reviewed PE: General: Alert HEENT: Normocephalic, trachea midline Eyes: Extraocular eye movement is intact, no scleral erythema Pulmonary: Slightly diminished breath sounds bilaterally with coarse breath sounds bilaterally, mild expiratory wheezing Cardio: Regular rate and rhythm GI: Abdomen is soft to palpation : No suprapubic tenderness MSK: No evidence of trauma or malformation of the extremities, no edema Skin: No evidence of rash Neuro: Alert, no focal deficits Psychiatric: Cooperative INDEPENDENT INTERPRETATIONS: monitoring analyst: (As interpreted by myself): - An order was placed for continuous cardiac monitoring - Patient was noted to be in sinus rhythm with a rate of 110 EKG: (As interpreted by myself): Rate: 103 Rhythm: Sinus tachycardia Intervals: QTc 503 ms, otherwise within normal limits ST changes: No ST elevation Time: 2300 Interventions provided in ED: -IV fluid bolus, DuoNeb breathing treatment, IV cefepime, IV azithromycin Medical Decision Making: IV was established and lab work obtained, patient was placed on teletypesetter monitor. Lab work shows a leukocytosis of 13.6, hemoglobin is stable at 10.5. Platelet count is normal. CMP does not show any critical findings, mild elevation in creatinine to 1.46 (baseline is near 1.0), venous blood gas shows normal pH. Tr oponin is mildly elevated at 27.9, patient's EKG does not show any acute ischemic changes. BNP is mildly elevated at 151. Procalcitonin is elevated at 0.93. Viral panel testing is negative. Chest x-ray does appear consistent with possible bilateral pneumonia per my interpretation. On my reassessment patient appears improved with less work of breathing. Given his fever, mild tachycardia, leukocytosis, shortness of breath and pneumonia on chest x-ray I feel he would benefit from admission. Patient was started on IV cefepime and IV azithromycin. He was given a 500 cc bolus of normal saline and none further secondary to stable blood pressure and concern for fluid overload with elevated BNP. Case was discussed with the on-call hospitalist, Dr. Subramanian, and the patient was placed for admission in stable condition. Consultants/Discussions held with other healthcare providers: -Hospitalist, Dr. Subramanian Disposition discussion held by myself with: -Patient Diagnosis: 1. Pneumonia, acute, bilateral 2. Fever 3. Leukocytosis, acute 4. Elevated creatinine, acute 5. Dyspnea, acute 6. Chest pain, acute, nonspecific 7. Elevated high-sensitivity troponin level, acute, mild Disposition: Admission Advised outpatient follow up that was discussed with the patient: -Return to the ED immediately with any new or worsening symptoms -Follow up with a PCP in 2-3 Days Gonzalo Kong DO Emergency Medicine Past Med/Surg History Medical History Benign prostatic hyperplasia with urinary obstruction Brain injury CKD (chronic kidney disease), stage III Diabetes mellitus, type 2 GERD (gastroesophageal reflux disease) Hiatal hernia High cholesterol History of urinary frequency Hypertension Mood altered Obesity Positive colorectal cancer screening using Cologuard test Presence of IVC filter Prosthetic eye globe Sleep apnea Surgical History H/O partial nephrectomy History of exploratory laparotomy History of incisional hernia repair (07/25/20) History of open reduction and internal fixation (ORIF) procedure History of tooth extraction S/P IVC filter Family History Mother Family history of reaction to anesthesia Family history of diabetes mellitus Uncle Family history of diabetes mellitus Father Heart disease Hypertension Social History Smoking Status: Unknown if ever smoked Tobacco Type: Cigarettes packs per day: 2; Second Hand Exposure: Yes (mother smoked); Do You Dip or Chew Tobacco: No; Hx Alcohol Use: No Hx Substance Use: No Preferred Language: Nigerien Communication Ability: Effective Visual Impairment: No Limitations Roll On Worker Required: No Beliefs That Will Affect Care: None marital status: Current Living Situation: Family current occupational status: disabled How many Children do You have: 1 Feels Safe at Home: Yes Assistive Devices: Cane Allergies Allergies Allergy/AdvReac Type Severity Reaction Status Date / Time naproxen Allergy Intermediate Hives Verified 07/24/21 11:12 Home Meds Home Medications Medication Instructions Recorded Confirmed divalproex 500 mg tablet,delayed 1,000 mg PO QAM 08/30/19 01/21/23 release oxybutynin chloride 10 mg 15 mg PO QAM 08/30/19 01/21/23 tablet,extended release 24 hr tamsulosin 0.4 mg capsule 0.4 mg PO BID 08/30/19 01/21/23 venlafaxine 150 mg 150 mg PO QAM 08/30/19 01/21/23 capsule,extended release 24 hr venlafaxine 75 mg capsule,extended 75 mg PO QAM 08/30/19 01/21/23 release 24 hr furosemide 40 mg tablet 40 mg PO QAM 10/24/19 01/21/23 cholecalciferol (vitamin D3) 50 50 mcg PO QAM 07/11/20 01/21/23 mcg (2,000 unit) tablet (Vitamin D3) hydralazine 50 mg tablet 50 mg PO Q8 07/11/20 01/21/23 insulin lispro 100 unit/mL 12 unit subcut TIDM 06/21/21 01/21/23 subcutaneous pen (Humalog KwikPen (U-100) Insulin) metoprolol succinate 50 mg 100 mg PO QAM 06/21/21 01/21/23 tablet,extended release 24 hr atorvastatin 40 mg tablet 40 mg PO QAM 07/08/21 01/21/23 ferrous sulfate 325 mg (65 mg 325 mg PO QAM 07/08/21 01/21/23 iron) tablet omeprazole 20 mg tablet,delayed 20 mg PO QAM 07/08/21 01/21/23 release vitamin B complex 1 tab PO QAM 07/08/21 01/21/23 acetaminophen 325 mg tablet 650 mg PO Q6 PRN Fever Or Pain 01/21/23 01/21/23 (Tylenol) amlodipine 10 mg tablet 10 mg PO DAILY 01/21/23 01/21/23 cephalexin 500 mg capsule 500 mg PO Q8H 01/21/23 01/21/23 insulin glargine 100 unit/mL (3 15 unit subcut BID 01/21/23 01/21/23 mL) subcutaneous pen (Lantus Solostar U-100 Insulin) meloxicam 15 mg tablet 15 mg PO DAILY 01/21/23 01/21/23 sennosides 8.6 mg tablet (senna) 817.2 mg PO DAILY 01/21/23 01/21/23 Results & Data (ED) Vital Signs Vital Signs - 24 hr 01/21/23 23:16 01/21/23 23:13 01/22/23 00:03 Temperature 38.1 C H Temperature Source Axillary Pulse Rate 104 H 108 H Pulse Rate from SpO2 Sensor Respiratory Rate 25 H 26 H Respiratory Effort / Characteristics Non-Labored Respiratory Depth Normal Blood Pressure 155/65 H Blood Pressure Mean 95 Pulse Oximetry 100 100 92 Oxygen Delivery Method Nebulizer Non-rebreather Room Air Oxygen Flow Rate 10 Sepsis Recent Fever Within 48 Hours No Sepsis New/Unexplained Change in Mental Status N/A Sepsis Action Taken by Nursing Physician Notified 01/21/23 23:05 01/21/23 23:16 01/21/23 23:16 Temperature Temperature Source Pulse Rate 105 H 100 H 105 H Pulse Rate from SpO2 Sensor 106 H Respiratory Rate 22 24 22 Respiratory Effort / Characteristics Respiratory Depth Blood Pressure 183/93 H 156/66 H Blood Pressure Mean 123 103 Pulse Oximetry 93 92 100 Oxygen Delivery Method Room Air Room Air Oxygen Flow Rate Sepsis Recent Fever Within 48 Hours Sepsis New/Unexplained Change in Mental Status Sepsis Action Taken by Nursing 01/21/23 23:19 01/21/23 23:19 01/21/23 23:30 Temperature Temperature Source Pulse Rate 106 H Pulse Rate from SpO2 Sensor 124 H Respiratory Rate 23 20 Respiratory Effort / Characteristics Respiratory Depth Blood Pressure 155/65 H 136/67 Blood Pressure Mean 92 88 Pulse Oximetry 94 Oxygen Delivery Method Oxygen Flow Rate Sepsis Recent Fever Within 48 Hours Sepsis New/Unexplained Change in Mental Status Sepsis Action Taken by Nursing 01/21/23 23:30 01/22/23 00:00 01/22/23 00:00 Temperature Temperature Source Pulse Rate 105 H 104 H Pulse Rate from SpO2 Sensor 105 H 105 H Respiratory Rate 24 24 Respiratory Effort / Characteristics Respiratory Depth Blood Pressure 134/66 Blood Pressure Mean 85 Pulse Oximetry 100 91 Oxygen Delivery Method Room Air Oxygen Flow Rate Sepsis Recent Fever Within 48 Hours Sepsis New/Unexplained Change in Mental Status Sepsis Action Taken by Nursing 01/22/23 00:30 Temperature Temperature Source Pulse Rate 110 H Pulse Rate from SpO2 Sensor 109 H Respiratory Rate 22 Respiratory Effort / Characteristics Respiratory Depth Blood Pressure 108/50 L Blood Pressure Mean 69 Pulse Oximetry 91 Oxygen Delivery Method Room Air Oxygen Flow Rate Sepsis Recent Fever Within 48 Hours Sepsis New/Unexplained Change in Mental Status Sepsis Action Taken by Nursing Laboratory Data 01/21/23 22:57 01/21/23 22:57 Lab Results 01/21/23 01/21/23 01/21/23 Range/Units 22:57 22:57 22:57 WBC 13.64 H (4.8-10.8) K/ul RBC 3.73 L (4.70-6.10) M/uL Hgb 10.5 L (14.0-18.0) g/dl POC Hgb (14.0-18.0) g/dl Hct 30.6 L (42.0-52.0) % POC Hct (42-52) % MCV 82.0 (80.0-100.0) fL MCH 28.2 (25.0-34.0) pg MCHC 34.3 (32.0-36.0) g/dL RDW Std Deviation 41.9 (36.4-46.3) fL RDW Coeff of Mauro 14.2 (11.5-14.5) % Plt Count 239 (130-400) K/uL MPV 9.6 (9.4-12.4) fL Immature Gran % (Auto) 1.1 % Neut % (Auto) 76.7 % Lymph % (Auto) 9.5 % Menard % (Auto) 11.6 % Eos % (Auto) 1.0 % Baso % (Auto) 0.1 % Neut # (Auto) 10.46 H (1.40-6.50) K/uL Lymph # (Auto) 1.29 (1.20-3.40) K/uL Menard # (Auto) 1.58 H (0.11-0.59) K/uL Eos # (Auto) 0.14 (0.00-0.50) K/uL Baso # (Auto) 0.02 (0.00-0.20) K/uL Immature Gran # (Auto) 0.15 (0.01-0.20) K/uL PT 11.5 (9.0-12.0) Seconds INR 1.1 (0.9-1.1) APTT 29.9 (21.0-31.0) Seconds PTT Ratio 1.1 VBG pH (7.36-7.41) VBG pCO2 (38-50) mmHg VBG pO2 mmHg VBG HCO3 mmol/L VBG O2 Saturation % VBG Base Excess mEq/L POC Sodium (135-144) mmol/L Sodium 135 L (136-145) mmol/L POC Potassium (3.3-5.0) mmol/L Potassium 3.5 (3.5-5.1) mmol/L POC Chloride (101-112) mmol/L Chloride 101 (98-107) mmol/L Carbon Dioxide 26 (21-32) mmol/L POC Total CO2 (24-31) mmol/L Anion Gap 8 (3-11) POC Anion Gap (16-25) mmol/L POC BUN (7-18) mg/dl BUN 40 H (6-23) mg/dl Creatinine 1.46 H (0.6-1.4) mg/dl POC Creatinine (0.6-1.3) mg/dl Est Cr Clr Drug Dosing 67.3 ml/min Est GFR ( Amer) 55.7 ml/min Est GFR (Non-Af Amer) 48.0 ml/min BUN/Creatinine Ratio 27.4 H (10-20) Glucose 161 H (70-99(Fasting)) mg/dl POC Glucose (other) (70-99) mg/dl Lactate (0.4-2.0) mmol/L Calcium 8.6 (8.6-10.3) mg/dl POC Ioniz Calcium Ellis (1.12-1.32) mmol/l Magnesium 1.9 (1.7-2.4) mg/dl Total Bilirubin 0.4 (0.2-1.0) mg/dl AST 37 (13-39) U/L ALT 41 (7-52) U/L Alkaline Phosphatase 111 H (34-104) U/L Troponin I High Sens 27.9 H (0-20) pg/ml B-Natriuretic Peptide (0-100) pg/ml Total Protein 6.3 (6.0-8.3) gm/dl Albumin 3.3 L (3.4-5.0) gm/dl Globulin 3.0 (2.5-4.0) gm/dl Albumin/Globulin Ratio 1.1 (0.9-2) Procalcitonin (0-0.5) ng/ml Adenovirus (PCR) (NotDetected) B. pertussis DNA (PCR) (NotDetected) B.parapertussis DNA PCR (NotDetected) C. pneumoniae DNA (PCR) (NotDetected) Coronavirus OC43 (PCR) (NotDetected) Coronavirus HKU1 (PCR) (NotDetected) Coronavirus 229E (PCR) (NotDetected) SARS-CoV-2 (PCR) (NotDetected) Coronavirus NL63 (PCR) (NotDetected) Human Metapneumovir PCR (NotDetected) Influenza Type A (PCR) (NotDetected) Influenza Type B (PCR) (NotDetected) M. pneumoniae (PCR) (NotDetected) Parainfluenza 1 (PCR) (NotDetected) Parainfluenza 2 (PCR) (NotDetected) Parainfluenza 3 (PCR) (NotDetected) Parainfluenza 4 (PCR) (NotDetected) RSV (PCR) (NotDetected) Entero/Rhino (PCR) (NotDetected) 01/21/23 01/21/23 01/21/23 Range/Units 22:57 23:10 23:10 WBC (4.8-10.8) K/ul RBC (4.70-6.10) M/uL Hgb (14.0-18.0) g/dl POC Hgb (14.0-18.0) g/dl Hct (42.0-52.0) % POC Hct (42-52) % MCV (80.0-100.0) fL MCH (25.0-34.0) pg MCHC (32.0-36.0) g/dL RDW Std Deviation (36.4-46.3) fL RDW Coeff of Mauro (11.5-14.5) % Plt Count (130-400) K/uL MPV (9.4-12.4) fL Immature Gran % (Auto) % Neut % (Auto) % Lymph % (Auto) % Menard % (Auto) % Eos % (Auto) % Baso % (Auto) % Neut # (Auto) (1.40-6.50) K/uL Lymph # (Auto) (1.20-3.40) K/uL Menard # (Auto) (0.11-0.59) K/uL Eos # (Auto) (0.00-0.50) K/uL Baso # (Auto) (0.00-0.20) K/uL Immature Gran # (Auto) (0.01-0.20) K/uL PT (9.0-12.0) Seconds INR (0.9-1.1) APTT (21.0-31.0) Seconds PTT Ratio VBG pH 7.40 (7.36-7.41) VBG pCO2 40 (38-50) mmHg VBG pO2 58 mmHg VBG HCO3 25 mmol/L VBG O2 Saturation 91.0 % VBG Base Excess 0 mEq/L POC Sodium (135-144) mmol/L Sodium (136-145) mmol/L POC Potassium (3.3-5.0) mmol/L Potassium (3.5-5.1) mmol/L POC Chloride (101-112) mmol/L Chloride (98-107) mmol/L Carbon Dioxide (21-32) mmol/L POC Total CO2 (24-31) mmol/L Anion Gap (3-11) POC Anion Gap (16-25) mmol/L POC BUN (7-18) mg/dl BUN (6-23) mg/dl Creatinine (0.6-1.4) mg/dl POC Creatinine (0.6-1.3) mg/dl Est Cr Clr Drug Dosing ml/min Est GFR ( Amer) ml/min Est GFR (Non-Af Amer) ml/min BUN/Creatinine Ratio (10-20) Glucose (70-99(Fasting)) mg/dl POC Glucose (other) (70-99) mg/dl Lactate (0.4-2.0) mmol/L Calcium (8.6-10.3) mg/dl POC Ioniz Calcium Ellis (1.12-1.32) mmol/l Magnesium (1.7-2.4) mg/dl Total Bilirubin (0.2-1.0) mg/dl AST (13-39) U/L ALT (7-52) U/L Alkaline Phosphatase (34-104) U/L Troponin I High Sens (0-20) pg/ml B-Natriuretic Peptide (0-100) pg/ml Total Protein (6.0-8.3) gm/dl Albumin (3.4-5.0) gm/dl Globulin (2.5-4.0) gm/dl Albumin/Globulin Ratio (0.9-2) Procalcitonin 0.93 H (0-0.5) ng/ml Adenovirus (PCR) Not Detected (NotDetected) B. pertussis DNA (PCR) Not Detected (NotDetected) B.parapertussis DNA PCR Not Detected (NotDetected) C. pneumoniae DNA (PCR) Not Detected (NotDetected) Coronavirus OC43 (PCR) Not Detected (NotDetected) Coronavirus HKU1 (PCR) Not Detected (NotDetected) Coronavirus 229E (PCR) Not Detected (NotDetected) SARS-CoV-2 (PCR) Not Detected (NotDetected) Coronavirus NL63 (PCR) Not Detected (NotDetected) Human Metapneumovir PCR Not Detected (NotDetected) Influenza Type A (PCR) Not Detected (NotDetected) Influenza Type B (PCR) Not Detected (NotDetected) M. pneumoniae (PCR) Not Detected (NotDetected) Parainfluenza 1 (PCR) Not Detected (NotDetected) Parainfluenza 2 (PCR) Not Detected (NotDetected) Parainfluenza 3 (PCR) Not Detected (NotDetected) Parainfluenza 4 (PCR) Not Detected (NotDetected) RSV (PCR) Not Detected (NotDetected) Entero/Rhino (PCR) Not Detected (NotDetected) 01/21/23 01/21/23 01/21/23 Range/Units 23:10 23:17 23:35 WBC (4.8-10.8) K/ul RBC (4.70-6.10) M/uL Hgb (14.0-18.0) g/dl POC Hgb 9.9 L (14.0-18.0) g/dl Hct (42.0-52.0) % POC Hct 29 L (42-52) % MCV (80.0-100.0) fL MCH (25.0-34.0) pg MCHC (32.0-36.0) g/dL RDW Std Deviation (36.4-46.3) fL RDW Coeff of Mauro (11.5-14.5) % Plt Count (130-400) K/uL MPV (9.4-12.4) fL Immature Gran % (Auto) % Neut % (Auto) % Lymph % (Auto) % Menard % (Auto) % Eos % (Auto) % Baso % (Auto) % Neut # (Auto) (1.40-6.50) K/uL Lymph # (Auto) (1.20-3.40) K/uL Menard # (Auto) (0.11-0.59) K/uL Eos # (Auto) (0.00-0.50) K/uL Baso # (Auto) (0.00-0.20) K/uL Immature Gran # (Auto) (0.01-0.20) K/uL PT (9.0-12.0) Seconds INR (0.9-1.1) APTT (21.0-31.0) Seconds PTT Ratio VBG pH (7.36-7.41) VBG pCO2 (38-50) mmHg VBG pO2 mmHg VBG HCO3 mmol/L VBG O2 Saturation % VBG Base Excess mEq/L POC Sodium 136 (135-144) mmol/L Sodium (136-145) mmol/L POC Potassium 3.4 (3.3-5.0) mmol/L Potassium (3.5-5.1) mmol/L POC Chloride 99 L (101-112) mmol/L Chloride (98-107) mmol/L Carbon Dioxide (21-32) mmol/L POC Total CO2 22 L (24-31) mmol/L Anion Gap (3-11) POC Anion Gap 19.0 (16-25) mmol/L POC BUN 36 H (7-18) mg/dl BUN (6-23) mg/dl Creatinine (0.6-1.4) mg/dl POC Creatinine 1.5 H (0.6-1.3) mg/dl Est Cr Clr Drug Dosing ml/min Est GFR ( Amer) ml/min Est GFR (Non-Af Amer) ml/min BUN/Creatinine Ratio (10-20) Glucose (70-99(Fasting)) mg/dl POC Glucose (other) 158 H (70-99) mg/dl Lactate 1.0 (0.4-2.0) mmol/L Calcium (8.6-10.3) mg/dl POC Ioniz Calcium Ellis 1.13 (1.12-1.32) mmol/l Magnesium (1.7-2.4) mg/dl Total Bilirubin (0.2-1.0) mg/dl AST (13-39) U/L ALT (7-52) U/L Alkaline Phosphatase (34-104) U/L Troponin I High Sens (0-20) pg/ml B-Natriuretic Peptide 151 H (0-100) pg/ml Total Protein (6.0-8.3) gm/dl Albumin (3.4-5.0) gm/dl Globulin (2.5-4.0) gm/dl Albumin/Globulin Ratio (0.9-2) Procalcitonin (0-0.5) ng/ml Adenovirus (PCR) (NotDetected) B. pertussis DNA (PCR) (NotDetected) B.parapertussis DNA PCR (NotDetected) C. pneumoniae DNA (PCR) (NotDetected) Coronavirus OC43 (PCR) (NotDetected) Coronavirus HKU1 (PCR) (NotDetected) Coronavirus 229E (PCR) (NotDetected) SARS-CoV-2 (PCR) (NotDetected) Coronavirus NL63 (PCR) (NotDetected) Human Metapneumovir PCR (NotDetected) Influenza Type A (PCR) (NotDetected) Influenza Type B (PCR) (NotDetected) M. pneumoniae (PCR) (NotDetected) Parainfluenza 1 (PCR) (NotDetected) Parainfluenza 2 (PCR) (NotDetected) Parainfluenza 3 (PCR) (NotDetected) Parainfluenza 4 (PCR) (NotDetected) RSV (PCR) (NotDetected) Entero/Rhino (PCR) (NotDetected) Administered Medications Azithromycin 500 mg/ Dextrose 255 mls @ 127.5 mls/hr IV NOW STA Stop: 01/22/23 01:54 Last Admin: 01/22/23 00:12 Dose: 127.5 mls/hr Documented By: LUIS Sodium Chloride (Nss) 500 mls @ 999 mls/hr IV .Q31M ONE Stop: 01/22/23 01:09 Last Admin: 01/22/23 00:52 Dose: 999 mls/hr Documented By: ISABEL Discontinued Medications Albuterol (Albut/Ipratrop 3mg/0.5mg Neb 3 Ml Vial) 3 ml NEB NOW STA; Protocol Stop: 01/21/23 23:25 Last Admin: 01/22/23 00:03 Dose: 3 ml Documented By: LUIS Cefepime HCl (Maxipime) 2,000 mg in 20 mls @ 5 mls/min IV NOW STA; Protocol Stop: 01/21/23 23:58 Last Admin: 01/22/23 00:03 Dose: 5 mls/min Documented By: LUIS Discharge Plan Visit Data Chief Complaint: Shortness of Breath/Dyspnea Stated Complaint: SHORTNESS OF BREATH, CHEST PAIN ED Provider: Gonzalo Kong Discharge Problem: Pneumonia Forms Stand Alone Forms: [facility] Prescriptions Prescriptions: No Action insulin lispro [Humalog KwikPen Insulin] 100 unit/mL insulin pen 12 unit subcut TIDM Rx Instructions: hold <100, call MD>450 metoprolol succinate 50 mg tablet extended release 24 hr 100 mg PO QAM venlafaxine 75 mg capsule,extended release 24hr 75 mg PO QAM oxybutynin chloride 10 mg tablet extended release 24hr 15 mg PO QAM venlafaxine 150 mg capsule,extended release 24hr 150 mg PO QAM divalproex 500 mg tablet,delayed release (DR/EC) 1,000 mg PO QAM tamsulosin 0.4 mg capsule 0.4 mg PO BID furosemide 40 mg tablet 40 mg PO QAM atorvastatin 40 mg Tablet 40 mg PO QAM vitamin B complex Tablet 1 tab PO QAM omeprazole 20 mg Tablet,Delayed Release (Dr/Ec) 20 mg PO QAM ferrous sulfate 325 mg (65 mg iron) tablet 325 mg PO QAM acetaminophen [Tylenol] 325 mg Tablet 650 mg PO Q6 MDD 3g PRN (Reason: Fever Or Pain) amlodipine 10 mg tablet 10 mg PO DAILY sennosides [senna] 8.6 mg Tablet 817.2 mg PO DAILY Rx Instructions: 2 tablet dose meloxicam 15 mg tablet 15 mg PO DAILY cephalexin [Keflex] 500 mg Capsule 500 mg PO Q8H Rx Instructions: take for 10 days...start 01/22/23 and end 02/01/23 insulin glargine [Lantus Solostar U-100 Insulin] 100 unit/mL (3 mL) insulin pen 15 unit SUBCUT BID hydralazine 50 mg Tablet 50 mg PO Q8 cholecalciferol (vitamin D3) [Vitamin D3] 50 mcg (2,000 unit) Tablet 50 mcg PO QAM Referrals Referrals: Meri Gomes CRNP [Outside Practitioners] -
[2023-01-21 23:26] LABS: Basophils # (auto) 0.02 K/uL (0.00-0.20); Basophils % (auto) 0.1 %; Eosinophils # (auto) 0.14 K/uL (0.00-0.50); Hematocrit (blood only) 30.6 % (42.0-52.0); Hemoglobin 10.5 g/dl (14.0-18.0); Immature Granulocytes # (auto) 0.15 K/uL (0.01-0.20); Immature Granulocytes % (auto) 1.1 %; Lymphocytes # (auto) 1.29 K/uL (1.20-3.40); Lymphocytes % (auto) 9.5 %; Mean Corpuscular Hemoglobin 28.2 pg (25.0-34.0); Mean Corpuscular Hgb Conc 34.3 g/dL (32.0-36.0); Mean Platelet Volume 9.6 fL (9.4-12.4); Monocytes # (auto) 1.58 K/uL (0.11-0.59); Monocytes % (auto) 11.6 %; Neutrophils # (auto) 10.46 K/uL (1.40-6.50); Neutrophils % (auto) 76.7 %; Platelet Count 239 K/uL (130-400); RDW Coefficient of Variation 14.2 % (11.5-14.5); RDW Standard Deviation 41.9 fL (36.4-46.3); Red Blood Count 3.73 M/uL (4.70-6.10); White Blood Count 13.64 K/ul (4.8-10.8)
[2023-01-21 23:30] LABS: iSTAT Creatinine 1.5 mg/dl (0.6-1.3); iSTAT Hemoglobin 9.9 g/dl (14.0-18.0); iSTAT Ionized Calcium 1.13 mmol/l (1.12-1.32); iSTAT Potassium 3.4 mmol/L (3.3-5.0)
[2023-01-21 23:31] LABS: Base Excess VBG 0 mEq/L; HCO3 VBG 25 mmol/L; PCO2 VBG 40 mmHg (38-50); PO2 VBG 58 mmHg
[2023-01-21 23:34] LABS: Albumin Globulin Ratio 1.1 (0.9-2); Albumin Level 3.3 gm/dl (3.4-5.0); BUN Creatinine Ratio 27.4 (10-20); Bilirubin,Total 0.4 mg/dl (0.2-1.0); Calcium 8.6 mg/dl (8.6-10.3); Creatinine Clr Calc Pharmacy 67.3 ml/min; Est GFR (African American) 55.7 ml/min; Magnesium 1.9 mg/dl (1.7-2.4); Potassium 3.5 mmol/L (3.5-5.1); Total Protein 6.3 gm/dl (6.0-8.3)
[2023-01-21 23:41] LABS: Troponin I High Sensitivity 27.9 pg/ml (0-20)
[2023-01-21] MEDS ORDERED: AZITHROMYCIN 500 MG in DEXTROSE 5% 250 ML IV STA (23:55)
[2023-01-21] MEDS ORDERED: CEFEPIME 2,000 MG/20 ML VIAL IV STA (23:55)
[2023-01-22 00:03] LABS: INR 1.1 (0.9-1.1); Partial Thromboplastin Ratio 1.1; Partial Thromboplastin Time 29.9 Seconds (21.0-31.0); Prothrombin Time 11.5 Seconds (9.0-12.0)
[2023-01-22 00:23] LABS: Adenovirus PCR Not Detected (NotDetected); Bordetella parapertussis PCR Not Detected (NotDetected); Bordetella pertussis PCR Not Detected (NotDetected); Chlamydia pneumoniae PCR Not Detected (NotDetected); Coronavirus 229E PCR Not Detected (NotDetected); Coronavirus CoV-2 (COVID19)PCR Not Detected (NotDetected); Coronavirus HKU1 PCR Not Detected (NotDetected); Coronavirus NL63 PCR Not Detected (NotDetected); Coronavirus OC43PCR Not Detected (NotDetected); Human Metapneumovirus PCR Not Detected (NotDetected); Influenza A PCR Not Detected (NotDetected); Influenza B PCR Not Detected (NotDetected); Mycoplasma pneumoniae PCR Not Detected (NotDetected); Parainfluenza Virus 1 PCR Not Detected (NotDetected); Parainfluenza Virus 2 PCR Not Detected (NotDetected); Parainfluenza Virus 3 PCR Not Detected (NotDetected); Parainfluenza Virus 4 PCR Not Detected (NotDetected); Respiratory Syncytial VirusPCR Not Detected (NotDetected); Rhinovirus/Enterovirus PCR Not Detected (NotDetected)
[2023-01-22] MEDS ORDERED: SODIUM CHLORIDE 0.9% 500 ML IV ONE (00:39)
[2023-01-22] MEDS ORDERED: LINEZOLID 600 MG/300 ML D5W IV SCH (04:00)
--- NOTE | 2023-01-22 04:07 | History & Physical Report ---
Date of Service January 22, 2023 Assessment & Plan (1) Pneumonia: (2) Cellulitis of both lower extremities: (3) Diabetes: (4) Hypertension: (5) Positive result for methicillin resistant Staphylococcus aureus (MRSA) screening: (6) KAMERON (acute kidney injury): (7) BPH (benign prostatic hyperplasia): (8) UTI (urinary tract infection): (9) Leg edema: Plan Infectious disease/urinary tract infection/pneumonia/MRSA positive screen- Continue azithromycin 500 mg IV daily and cefepime 2 g IV every 12 hours, begun in the ED Add linezolid 60 mg IV every 12 hours, due to both infections, and positive MRSA screen in the setting of acute kidney injury Duonebs every 4 hours while awake and every 2 hours when necessary. Nasal cannula oxygen, titrate to keep pulse ox around 92%, as patient likely has undiagnosed severe MARILYN, and obesity hypoventilation syndrome Urinary tract infection/BPH/clear-cell adenocarcinoma of kidney/CKD stage III- Follow urine culture and sensitivity Antibiotics as above Hold meloxicam Creatinine 1.46 on admission, with base 1.05. Combined with dropping blood pressure in the ED down to the systolic 102, patient was given 500 cc bolus of normal saline, with improvement in systolic to 130s Bilateral lower extremity cellulitis/chronic venous stasis dermatitis, right greater than left- Antibiotics as above Patient will ultimately need to have reduction in LE edema. We will start with initially holding amlodipine 10 mg daily and hydralazine 50 mg p.o. every 8 hours in the setting of use of meloxicam If edema improves by passively redressing these medications, may not need to have aggressive diuresis with IV furosemide, and can resume furosemide 40 mg in the a.m. hopefully As noted above, patient does need a 500 cc bolus of normal saline to maintain adequate blood pressure at this time in the ED Should be able to resume metoprolol succinate 100 mg every morning in the morning Elevated troponin/hypertension- The patient will be admitted to telemetry for serial cardiac enzymes, serial EKG's, cardiac rhythm monitoring and a 2-D echocardiogram with Dopplers. Troponin 27.9 on admission Likely type II supply/demand mismatch Continue metoprolol succinate 100 mg every morning, holding the amlodipine 10 mg daily, hydralazine 50 mg every 8 hours due to significant lower extremity edema Most recent echo on 09/02/2019 showed ejection fraction of 55-60% Diabetes mellitus- Continue glargine 15 units subcu twice daily resuming dosing in the morning Placed on Accu-Cheks with NovoLog SSI Disposition- patient has lived with his , but has more recently been at [facility], where he says she had him placed to be able to get regular meals ser paul to him History of Present Illness Chief Complaint: The patient presents to the emergency department with complaint of shortness of breath, persistent and worsening lower extremity edema with drainage and erythema Primary Care Provider: [facility] The patient is a 72-year-old male with a past medical history including vitamin D deficiency, diabetes mellitus, hypertension, KAMERON, BPH, history of falls, UTI, clear-cell carcinoma of the right kidney, morbid obesity, and brain injury status post fall. The patient presents to the emergency department with symptoms above. Significant laboratories: WBC 13.64, hemoglobin 10.5, hematocrit 30.6, potassium 3.4, creatinine 1.46, glucose 161 and BUN 40. Troponin 27.9, albumin 3.3, procalcitonin 0.93 Viral PCR test was negative Chest x-ray showed atelectasis versus early infiltrate at the bases bilaterally From the ED the patient received the following: Normal saline 500 mill bolus, DuoNeb, azithromycin 500 mg IV x1, and cefepime 2 g IV x1 Allergies Allergy/AdvReac Type Severity Reaction Status Date / Time naproxen Allergy Intermediate Hives Verified 07/24/21 11:12 Home Medications Medication Instructions Recorded Confirmed Type divalproex 500 mg tablet,delayed 1,000 mg PO QAM 08/30/19 01/21/23 History release oxybutynin chloride 10 mg 15 mg PO QAM 08/30/19 01/21/23 History tablet,extended release 24 hr tamsulosin 0.4 mg capsule 0.4 mg PO BID 08/30/19 01/21/23 History venlafaxine 150 mg 150 mg PO QAM 08/30/19 01/21/23 History capsule,extended release 24 hr venlafaxine 75 mg capsule,extended 75 mg PO QAM 08/30/19 01/21/23 History release 24 hr furosemide 40 mg tablet 40 mg PO QAM 10/24/19 01/21/23 History cholecalciferol (vitamin D3) 50 50 mcg PO QAM 07/11/20 01/21/23 History mcg (2,000 unit) tablet (Vitamin D3) hydralazine 50 mg tablet 50 mg PO Q8 07/11/20 01/21/23 History insulin lispro 100 unit/mL 12 unit subcut TIDM 06/21/21 01/21/23 History subcutaneous pen (Humalog KwikPen (U-100) Insulin) metoprolol succinate 50 mg 100 mg PO QAM 06/21/21 01/21/23 History tablet,extended release 24 hr atorvastatin 40 mg tablet 40 mg PO QAM 07/08/21 01/21/23 History ferrous sulfate 325 mg (65 mg 325 mg PO QAM 07/08/21 01/21/23 History iron) tablet omeprazole 20 mg tablet,delayed 20 mg PO QAM 07/08/21 01/21/23 History release vitamin B complex 1 tab PO QAM 07/08/21 01/21/23 History acetaminophen 325 mg tablet 650 mg PO Q6 PRN Fever Or Pain 01/21/23 01/21/23 History (Tylenol) amlodipine 10 mg tablet 10 mg PO DAILY 01/21/23 01/21/23 History cephalexin 500 mg capsule 500 mg PO Q8H 01/21/23 01/21/23 History insulin glargine 100 unit/mL (3 15 unit subcut BID 01/21/23 01/21/23 History mL) subcutaneous pen (Lantus Solostar U-100 Insulin) meloxicam 15 mg tablet 15 mg PO DAILY 01/21/23 01/21/23 History sennosides 8.6 mg tablet (senna) 817.2 mg PO DAILY 01/21/23 01/21/23 History Past Med/Surg History Medical History Benign prostatic hyperplasia with urinary obstruction Brain injury CKD (chronic kidney disease), stage III Diabetes mellitus, type 2 GERD (gastroesophageal reflux disease) Hiatal hernia High cholesterol History of urinary frequency Hypertension Mood altered Obesity Positive colorectal cancer screening using Cologuard test Presence of IVC filter Prosthetic eye globe Sleep apnea Surgical History H/O partial nephrectomy History of exploratory laparotomy History of incisional hernia repair (07/25/20) History of open reduction and internal fixation (ORIF) procedure History of tooth extraction S/P IVC filter Family History Mother Family history of reaction to anesthesia Family history of diabetes mellitus Uncle Family history of diabetes mellitus Father Heart disease Hypertension Social History Smoking Status: Unknown if ever smoked Tobacco Type: Cigarettes packs per day: 2; Second Hand Exposure: Yes (mother smoked); Do You Dip or Chew Tobacco: No; Hx Alcohol Use: No Hx Substance Use: No Preferred Language: Tamazight Communication Ability: Effective Visual Impairment: No 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 [employer]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 Beliefs That Will Affect Care: None marital status: Current Living Situation: Family current occupational status: disabled How many Children do You have: 1 Feels Safe at Home: Yes Assistive Devices: Cane Review of Systems 2 Review of Systems: The patient denies chest pain, palpitations, sore throat, fevers, chills, sweats, nausea, vomiting, diarrhea , constipation, abdominal pain, pelvic pain, blood in urine or stool, dysuria, urinary frequency or urgency, lightheadedness, dizziness, headache, memory loss, loss of consciousness, focal weakness, numbness or tingling in arms or legs, neck pain, or night sweats. The review of systems is otherwise negative other than for that already noted above, and at least 10 systems have been reviewed. Physical Exam Physical Exam: The patient is awake, alert and oriented 3, well developed and well nourished, normocephalic and atraumatic, lying in bed and in no acute distress. HEENT--PERRL, EOMI, mucous membranes and oropharynx normal. Neck--supple. No JVD. No bruits. Thyroid normal, trachea midline, no adenopathy. Heart--normal S1 and S2. No murmurs, rubs or gallops. Lungs--few coarse breath sounds at the bases bilaterally. No respiratory distress, no accessory muscle use. Abdomen--normal bowel sounds and soft. Nontender. Nondistended. Morbidly obese. Extremities--2+ bilateral pretibial pitting edema, right greater than left. Moderate erythema right greater than left. Vesicles bilaterally, right greater than left. Chronic venous stasis changes Dermatologic--see above Neurologic--cranial nerves II through XII grossly intact. Rheumatologic--limited exam due to body habitus Psychiatric--normal affect. Results & Data Results & Data Vital Signs (Past 12 Hours) Vital Signs Temp Pulse Resp BP Pulse Ox O2 Del Method O2 Flow Rate 01/22/23 03:00 102 H 21 137/80 93 Nasal Cannula 1 01/22/23 02:30 110 H 20 122/66 95 Nasal Cannula 1 01/22/23 02:00 106 H 20 128/71 95 Nasal Cannula 1 01/22/23 01:30 108 H 19 132/65 95 Nasal Cannula 1 01/22/23 01:01 109 H 20 149/68 H 95 Nasal Cannula 1 01/22/23 01:47 106 H 01/22/23 00:46 87 L Room Air 01/22/23 00:30 110 H 22 108/50 L 91 Room Air 01/22/23 00:00 134/66 01/22/23 00:00 104 H 24 91 Room Air 01/21/23 23:30 105 H 24 100 01/21/23 23:30 20 136/67 01/21/23 23:19 155/65 H 01/21/23 23:19 106 H 23 94 01/21/23 23:16 105 H 22 100 01/21/23 23:16 100 H 24 156/66 H 92 Room Air 01/21/23 23:05 105 H 22 183/93 H 93 Room Air 01/22/23 00:03 92 Room Air 01/21/23 23:13 108 H 26 H 100 Non-rebreather 10 01/21/23 23:16 38.1 C H 104 H 25 H 155/65 H 100 Nebulizer Laboratory Results Laboratory Results WBC 13.64 K/ul (4.8-10.8) H 01/21/23 22:57 RBC 3.73 M/uL (4.70-6.10) L 01/21/23 22:57 Hgb 10.5 g/dl (14.0-18.0) L 01/21/23 22:57 POC Hgb 9.9 g/dl (14.0-18.0) L 01/21/23 23:17 Hct 30.6 % (42.0-52.0) L 01/21/23 22:57 POC Hct 29 % (42-52) L 01/21/23 23:17 MCV 82.0 fL (80.0-100.0) 01/21/23 22:57 MCH 28.2 pg (25.0-34.0) 01/21/23 22:57 MCHC 34.3 g/dL (32.0-36.0) 01/21/23 22:57 RDW Std Deviation 41.9 fL (36.4-46.3) 01/21/23 22:57 RDW Coeff of Mauro 14.2 % (11.5-14.5) 01/21/23 22:57 Plt Count 239 K/uL (130-400) 01/21/23 22:57 MPV 9.6 fL (9.4-12.4) 01/21/23 22:57 Immature Gran % (Auto) 1.1 % 01/21/23 22:57 Neut % (Auto) 76.7 % 01/21/23 22:57 Lymph % (Auto) 9.5 % 01/21/23 22:57 [place] % (Auto) 11.6 % 01/21/23 22:57 Eos % (Auto) 1.0 % 01/21/23 22:57 Baso % (Auto) 0.1 % 01/21/23 22:57 Neut # (Auto) 10.46 K/uL (1.40-6.50) H 01/21/23 22:57 Lymph # (Auto) 1.29 K/uL (1.20-3.40) 01/21/23 22:57 [place] # (Auto) 1.58 K/uL (0.11-0.59) H 01/21/23 22:57 Eos # (Auto) 0.14 K/uL (0.00-0.50) 01/21/23 22:57 Baso # (Auto) 0.02 K/uL (0.00-0.20) 01/21/23 22:57 Immature Gran # (Auto) 0.15 K/uL (0.01-0.20) 01/21/23 22:57 PT 11.5 Seconds (9.0-12.0) 01/21/23 22:57 INR 1.1 (0.9-1.1) 01/21/23 22:57 APTT 29.9 Seconds (21.0-31.0) 01/21/23 22:57 PTT Ratio 1.1 01/21/23 22:57 VBG pH 7.40 (7.36-7.41) 01/21/23 23:10 VBG pCO2 40 mmHg (38-50) 01/21/23 23:10 VBG pO2 58 mmHg 01/21/23 23:10 VBG HCO3 25 mmol/L 01/21/23 23:10 VBG O2 Saturation 91.0 % 01/21/23 23:10 VBG Base Excess 0 mEq/L 01/21/23 23:10 POC Sodium 136 mmol/L (135-144) 01/21/23 23:17 Sodium 135 mmol/L (136-145) L 01/21/23 22:57 POC Potassium 3.4 mmol/L (3.3-5.0) 01/21/23 23:17 Potassium 3.5 mmol/L (3.5-5.1) 01/21/23 22:57 POC Chloride 99 mmol/L (101-112) L 01/21/23 23:17 Chloride 101 mmol/L (98-107) 01/21/23 22:57 Carbon Dioxide 26 mmol/L (21-32) 01/21/23 22:57 POC Total CO2 22 mmol/L (24-31) L 01/21/23 23:17 Anion Gap 8 (3-11) 01/21/23 22:57 POC Anion Gap 19.0 mmol/L (16-25) 01/21/23 23:17 POC BUN 36 mg/dl (7-18) H 01/21/23 23:17 BUN 40 mg/dl (6-23) H 01/21/23 22:57 Creatinine 1.46 mg/dl (0.6-1.4) H 01/21/23 22:57 POC Creatinine 1.5 mg/dl (0.6-1.3) H 01/21/23 23:17 Est Cr Clr Drug Dosing 67.3 ml/min 01/21/23 22:57 Est GFR ( Amer) 55.7 ml/min 01/21/23 22:57 Est GFR (Non-Af Amer) 48.0 ml/min 01/21/23 22:57 BUN/Creatinine Ratio 27.4 (10-20) H 01/21/23 22:57 Glucose 161 mg/dl (70-99(Fasting)) H 01/21/23 22:57 POC Glucose (other) 158 mg/dl (70-99) H 01/21/23 23:17 Lactate 1.0 mmol/L (0.4-2.0) 01/21/23 23:35 Calcium 8.6 mg/dl (8.6-10.3) 01/21/23 22:57 POC Ioniz Calcium Ellis 1.13 mmol/l (1.12-1.32) 01/21/23 23:17 Magnesium 1.9 mg/dl (1.7-2.4) 01/21/23 22:57 Total Bilirubin 0.4 mg/dl (0.2-1.0) 01/21/23 22:57 AST 37 U/L (13-39) 01/21/23 22:57 ALT 41 U/L (7-52) 01/21/23 22:57 Alkaline Phosphatase 111 U/L (34-104) H 01/21/23 22:57 Troponin I High Sens 29.1 pg/ml (0-20) H 01/22/23 01:53 B-Natriuretic Peptide 151 pg/ml (0-100) H 01/21/23 23:10 Total Protein 6.3 gm/dl (6.0-8.3) 01/21/23 22:57 Albumin 3.3 gm/dl (3.4-5.0) L 01/21/23 22:57 Globulin 3.0 gm/dl (2.5-4.0) 01/21/23 22:57 Albumin/Globulin Ratio 1.1 (0.9-2) 01/21/23 22:57 Procalcitonin 0.93 ng/ml (0-0.5) H 01/21/23 22:57 Nasal Screen MRSA (PCR) Positive (Negative) A 01/22/23 Unknown Adenovirus (PCR) Not Detected (NotDetected) 01/21/23 23:10 B. pertussis DNA (PCR) Not Detected (NotDetected) 01/21/23 23:10 B.parapertussis DNA PCR Not Detected (NotDetected) 01/21/23 23:10 C. pneumoniae DNA (PCR) Not Detected (NotDetected) 01/21/23 23:10 Coronavirus OC43 (PCR) Not Detected (NotDetected) 01/21/23 23:10 Coronavirus HKU1 (PCR) Not Detected (NotDetected) 01/21/23 23:10 Coronavirus 229E (PCR) Not Detected (NotDetected) 01/21/23 23:10 SARS-CoV-2 (PCR) Not Detected (NotDetected) 01/21/23 23:10 Coronavirus NL63 (PCR) Not Detected (NotDetected) 01/21/23 23:10 Human Metapneumovir PCR Not Detected (NotDetected) 01/21/23 23:10 Influenza Type A (PCR) Not Detected (NotDetected) 01/21/23 23:10 Influenza Type B (PCR) Not Detected (NotDetected) 01/21/23 23:10 M. pneumoniae (PCR) Not Detected (NotDetected) 01/21/23 23:10 Parainfluenza 1 (PCR) Not Detected (NotDetected) 01/21/23 23:10 Parainfluenza 2 (PCR) Not Detected (NotDetected) 01/21/23 23:10 Parainfluenza 3 (PCR) Not Detected (NotDetected) 01/21/23 23:10 Parainfluenza 4 (PCR) Not Detected (NotDetected) 01/21/23 23:10 RSV (PCR) Not Detected (NotDetected) 01/21/23 23:10 Entero/Rhino (PCR) Not Detected (NotDetected) 01/21/23 23:10 Code Status & VTE Plan Code Status Full code VTE Prophylaxis Plan VTE Prophylaxis will be ordered: Yes PG Care Time/CCT Total # of Minutes Spent Total Time Spent with Patient: Total time spent is greater than 50% in coordination of care (as documented) at patient's floor/unit and/or counseling patient: Coding Level of Care Code 87447 INT INP/OBS CARE 3/75MIN Diagnoses Pneumonia J18.9 Cellulitis of both lower extremities L03.115; L03.116 Diabetes E11.9 Hypertension I10 Positive result for methicillin resistant Staphylococcus aureus (MRSA) screening Z22.322 KAMERON (acute kidney injury) N17.9 BPH (benign prostatic hyperplasia) N40.0 UTI (urinary tract infection) N39.0 Leg edema R60.0
[2023-01-22] MEDS ORDERED: CARBOHYDRATES FOR HYPOGLYCEMIA PO PRN (04:08)
[2023-01-22] MEDS ORDERED: GLUCAGON FOR INJ 1 MG VIAL SQ PRN (04:08)
[2023-01-22] MEDS ORDERED: SODIUM CHLORIDE 0.9% 1,000 ML IV SCH (04:08)
[2023-01-22] MEDS ORDERED: ACETAMINOPHEN 325 MG TAB PO PRN (04:08)
[2023-01-22] MEDS ORDERED: GLUCOSE 40% GEL 15 GM TUBE PO PRN (04:08)
[2023-01-22] MEDS ORDERED: DEXTROSE 50% 50 ML SYRINGE IV PRN (04:08)
[2023-01-22] MEDS ORDERED: ONDANSETRON INJ 2 MG/ML 2 ML VIAL IV PRN (04:08)
[2023-01-22] MEDS ORDERED: GLUCOSE 10 TAB/TUBE PO PRN (04:08)
[2023-01-22] MEDS ORDERED: NITROGLYCERIN SL 0.4 MG/TAB TAB SL PRN (04:08)
[2023-01-22] MEDS: LINEZOLID 600 MG/300 ML BAG IV SCH ×3 (05:52→20:05)
[2023-01-22] MEDS: HEPARIN SOD 5,000 UNIT/0.5 ML VIAL SQ SCH ×3 (05:52→22:34)
--- NOTE | 2023-01-22 06:50 | XRay Report ---
SINGLE VIEW CHEST CLINICAL HISTORY: Sepsis. FINDINGS: A PA chest radiograph is compared to study dated 12/14/2021. The examination is degraded by p ortable technique and patient rotation. The heart is enlarged noting atherosclerotic calcification o f the thoracic aorta. There is pulmonary vascular congestion. There is left basilar consolidation. A small left pleural effusion is suspected. No pneumothorax is seen. The skeletal structures are osteop enic. The bony thorax is grossly intact. Advanced arthritic change is seen in the shoulders. IMPRESSION: 1. Cardiomegaly with pulmonary vascular congestion. 2. Left basilar consolidation is typical for pneumonia/aspiration pneumonitis. Clinical correlation w ill be required and radiographic follow-up to resolution is recommended. 3. Suspect a small left pleural effusion. ACT 112: Negative or not required by law. Electronically signed by: Greg Lazar M.D. 01/22/2023 6:49 AM
[2023-01-22] MEDS: INSULIN ASPART PER UNIT CHARGE SC SCH ×4 (06:53→20:49)
[2023-01-22] MEDS ORDERED: VENLAFAXINE HCL XR 75 MG CAPXR PO SCH (09:00)
[2023-01-22] MEDS ORDERED: VENLAFAXINE HCL XR 150 MG CAPXR PO SCH (09:00)
[2023-01-22] MEDS: ATORVASTATIN 40 MG TAB PO SCH (09:41)
[2023-01-22] MEDS: CHOLECALCIFEROL 1,000 UNITS 25 MCG TAB PO SCH (09:42)
[2023-01-22] MEDS: METOPROLOL SUCC 50MG EXT REL TAB PO SCH (09:42)
[2023-01-22] MEDS: DIVALPROEX DELAY RELEASE 500 MG TAB PO SCH (09:42)
[2023-01-22] MEDS: SENNA 8.6 MG TAB PO SCH (09:43)
[2023-01-22] MEDS: VITAMIN B COMPLEX TAB PO SCH (09:43)
[2023-01-22] MEDS: TAMSULOSIN HCL 0.4 MG CAP PO SCH ×2 (09:43→21:10)
[2023-01-22] MEDS: OXYBUTYNIN CHLORIDE XL 5 MG TABCR PO SCH (09:43)
[2023-01-22] MEDS: LANTUS PER UNIT CHARGE SQ SCH ×2 (09:44→20:48)
[2023-01-22 10:02] LABS: Hematocrit (blood only) 28.1 % (42.0-52.0); Hemoglobin 9.6 g/dl (14.0-18.0); Mean Corpuscular Hemoglobin 27.9 pg (25.0-34.0); Mean Corpuscular Hgb Conc 34.2 g/dL (32.0-36.0); Mean Corpuscular Volume 81.7 fL (80.0-100.0); Mean Platelet Volume 9.7 fL (9.4-12.4); Platelet Count 227 K/uL (130-400); RDW Coefficient of Variation 14.2 % (11.5-14.5); RDW Standard Deviation 41.7 fL (36.4-46.3); Red Blood Count 3.44 M/uL (4.70-6.10); White Blood Count 14.28 K/ul (4.8-10.8)
[2023-01-22 10:19] LABS: Basophils # (auto) 0.03 K/uL (0.00-0.20); Basophils % (auto) 0.2 %; Immature Granulocytes # (auto) 0.17 K/uL (0.01-0.20); Immature Granulocytes % (auto) 1.2 %; Lymphocytes # (auto) 0.51 K/uL (1.20-3.40); Lymphocytes % (auto) 3.6 %; Monocytes % (auto) 2.8 %; Neutrophils # (auto) 13.17 K/uL (1.40-6.50); Neutrophils % (auto) 92.2 %
[2023-01-22 10:21] LABS: BUN Creatinine Ratio 27.5 (10-20); Bilirubin,Total 0.4 mg/dl (0.2-1.0); Calcium 8.3 mg/dl (8.6-10.3); Creatinine Clr Calc Pharmacy 69.2 ml/min; Est GFR (African American) 57.6 ml/min; Est GFR (Non-African American) 49.7 ml/min; Potassium 3.6 mmol/L (3.5-5.1)
[2023-01-22] MEDS: CEFEPIME 2,000 MG in SYRINGE 0 ML IV SCH ×2 (10:23→20:48)
[2023-01-22 10:31] LABS: Troponin I High Sensitivity 40.7 pg/ml (0-20)
[2023-01-22 11:45] LABS: Estimated Average Glucose 140 mg/dl; Hemoglobin A1C 6.5 % (4.5-5.6)
--- NOTE | 2023-01-22 12:36 | Electrocardiogram Report ---
Test Reason : Blood Pressure : / mmHG Vent. Rate : 103 BPM Atrial Rate : 104 BPM P-R Int : 166 ms QRS Dur : 112 ms QT Int : 372 ms P-R-T Axes : 025 -50 042 degrees QTc Int : 487 ms Poor data quality, interpretation may be adversely affected Sinus tachycardia Premature atrial complexes Incomplete right bundle branch block Left anterior fascicular block Nonspecific ST and T wave abnormality Abnormal ECG When compared with ECG of 21-JUN-2021 14:03, ST now depressed in Anterior leads Confirmed by Ezio Collado ([id number]) on 01/22/2023 12:36:19 PM Referred By: [facility] Confirmed By:Ezio Collado
[2023-01-22 15:31] LABS: Appearance Urine Clear (Clear); Bacteria Urine Automated Negative (Negative); Bilirubin Urine Negative (Negative); Blood Urine Negative (Negative); Color Urine Yellow; Glucose Urine UA Negative (Negative); Ketones Urine Negative (Negative); Leukocyte Esterase Urine Negative (Negative); Nitrite Urine Negative (Negative); Protein Urine 1+ (Negative); RBC Urine Automated 0-4 /hpf (0-4); Specific Gravity Urine 1.018 (1.000-1.030); Urobilinogen Urine Negative (Negative); pH Urine 5.5 (4.5-7.5)
--- NOTE | 2023-01-22 16:51 | Communication Note ---
Date of Service: January 22, 2023 please refer to the H&P dictated earlier this morning for details of presentation on admission. He is a 72-year-old male who presented with shortness of breath, worsening lower extremity edema and erythema. He met sepsis criteria. He is currently being treated for pneumonia, UTI and cellulitis of his both lower extremities. He is on multiple antibiotics. he also presented with acute kidney injury and is being treated with some IV fluids. Blood pressure has improved. Monitor a.m. labs. The patient says that he is feeling better compared to when he first came to the hospital. I plan to continue current treatment.
[2023-01-22] MEDS: AZITHROMYCIN 500 MG in DEXTROSE 5% 250 ML IV SCH (19:12)
[2023-01-23] MEDS: HEPARIN SOD 5,000 UNIT/0.5 ML VIAL SQ SCH ×3 (05:32→22:03)
[2023-01-23] MEDS: LINEZOLID 600 MG/300 ML BAG IV SCH ×2 (05:32→18:32)
[2023-01-23 07:32] LABS: Basophils # (auto) 0.04 K/uL (0.00-0.20); Basophils % (auto) 0.2 %; Hematocrit (blood only) 28.8 % (42.0-52.0); Hemoglobin 9.9 g/dl (14.0-18.0); Immature Granulocytes # (auto) 0.73 K/uL (0.01-0.20); Immature Granulocytes % (auto) 3.6 %; Lymphocytes # (auto) 1.27 K/uL (1.20-3.40); Lymphocytes % (auto) 6.2 %; Mean Corpuscular Hemoglobin 28.3 pg (25.0-34.0); Mean Corpuscular Hgb Conc 34.4 g/dL (32.0-36.0); Mean Corpuscular Volume 82.3 fL (80.0-100.0); Mean Platelet Volume 10.1 fL (9.4-12.4); Monocytes % (auto) 7.3 %; Neutrophils # (auto) 16.94 K/uL (1.40-6.50); Neutrophils % (auto) 82.7 %; Platelet Count 262 K/uL (130-400); RDW Coefficient of Variation 14.3 % (11.5-14.5); RDW Standard Deviation 42.5 fL (36.4-46.3); White Blood Count 20.48 K/ul (4.8-10.8)
[2023-01-23 07:52] LABS: Albumin Level 2.9 gm/dl (3.4-5.0); BUN Creatinine Ratio 36.2 (10-20); Bilirubin,Total 0.3 mg/dl (0.2-1.0); Calcium 8.6 mg/dl (8.6-10.3); Creatinine Clr Calc Pharmacy 66.3 ml/min; Est GFR (African American) 58.1 ml/min; Est GFR (Non-African American) 50.1 ml/min; Magnesium 2.1 mg/dl (1.7-2.4); Potassium 3.8 mmol/L (3.5-5.1); Total Protein 5.9 gm/dl (6.0-8.3)
[2023-01-23] MEDS: LANTUS PER UNIT CHARGE SQ SCH ×2 (08:13→22:03)
[2023-01-23] MEDS: INSULIN ASPART PER UNIT CHARGE SC SCH ×4 (08:14→22:04)
[2023-01-23] MEDS: CEFEPIME 2,000 MG in SYRINGE 0 ML IV SCH ×2 (08:17→16:07)
[2023-01-23] MEDS: ATORVASTATIN 40 MG TAB PO SCH (08:22)
[2023-01-23] MEDS: CHOLECALCIFEROL 1,000 UNITS 25 MCG TAB PO SCH (08:23)
[2023-01-23] MEDS: DIVALPROEX DELAY RELEASE 500 MG TAB PO SCH (08:24)
[2023-01-23] MEDS: VITAMIN B COMPLEX TAB PO SCH (08:25)
[2023-01-23] MEDS: METOPROLOL SUCC 50MG EXT REL TAB PO SCH (08:25)
[2023-01-23] MEDS: OXYBUTYNIN CHLORIDE XL 5 MG TABCR PO SCH (08:25)
[2023-01-23] MEDS: TAMSULOSIN HCL 0.4 MG CAP PO SCH ×2 (08:26→22:03)
[2023-01-23] MEDS: SENNA 8.6 MG TAB PO SCH (08:26)
--- NOTE | 2023-01-23 11:17 | XRay Report ---
XR chest 1V portable HISTORY: 72 years-old Male hypoxia acute hypoxia COMPARISON: 01/21/2023 TECHNIQUE: AP view of the chest FINDINGS: Cardiac silhouette is enlarged. Hypoinflation. Small left pleural effusion with mild left basilar opa cities. No pneumothorax. Degenerative changes of the shoulders and spine. IMPRESSION: 1. Small left pleural effusion with mild left basilar consolidation suggestive of atelectasis versus pneumonia. 2. Cardiomegaly with hypoinflation. ACT 112: Negative or not required by law. The above report was generated using voice recognition software. It may contain grammatical, syntax o r spelling errors. Electronically signed by: Tobi Sandoval M.D. 01/23/2023 11:16 AM
--- NOTE | 2023-01-23 12:52 | Hospitalist Progress Note ---
Date of Service January 23, 2023 Assessment & Plan (1) Pneumonia: (2) Cellulitis of both lower extremities: (3) Diabetes: (4) Hypertension: (5) Positive result for methicillin resistant Staphylococcus aureus (MRSA) screening: (6) KAMERON (acute kidney injury): (7) BPH (benign prostatic hyperplasia): (8) UTI (urinary tract infection): (9) Leg edema: Plan Pneumonia/MRSA positive screen- Previoius hospitalist noted UTI, seems unlikely given negative UA. Continue azithromycin 500 mg IV daily and cefepime 2 g IV every 12 hours, begun in the ED Add linezolid 60 mg IV every 12 hours due to positive MRSA screen in the setting of acute kidney injury Duonebs every 4 hours while awake and every 2 hours when necessary. Nasal cannula oxygen, titrate to keep pulse ox around 92%, as patient likely has undiagnosed severe MARILYN, and obesity hypoventilation syndrome Benign Prostatic Hyperplasia/clear-cell adenocarcinoma of kidney/CKD stage III- Follow urine culture and sensitivity Antibiotics as above Hold meloxicam Creatinine 1.46 on admission, with base 1.05. Combined with dropping blood pressure in the ED down to the systolic 102, patient was given 500 cc bolus of normal saline, with improvement in systolic to 130s. Creatinine remains at 1.4 on 01/23 Bilateral lower extremity cellulitis/chronic venous stasis dermatitis, right greater than left- Antibiotics as above Patient will ultimately need to have reduction in LE edema. We will start with initially holding amlodipine 10 mg daily and hydralazine 50 mg p.o. every 8 hours in the setting of use of meloxicam Edema does not appear o be severe on exam today. Erythema appears to be less red (as discussed with nurse) If edema improves by passively redressing these medications, may not need to have aggressive diuresis with IV furosemide. As noted above, patient does need a 500 cc bolus of normal saline to maintain ad equate blood pressure at this time in the ED Resumed metoprolol succinate 100 mg every morning in the morning Elevated troponin/hypertension- The patient will be admitted to telemetry for serial cardiac enzymes, serial EKG's, cardiac rhythm monitoring and a 2-D echocardiogram with Dopplers. Troponin 27.9 on admission Likely type II supply/demand mismatch Continue metoprolol succinate 100 mg every morning, holding the amlodipine 10 mg daily, hydralazine 50 mg every 8 hours due to significant lower extremity edema Most recent echo on 09/02/2019 showed ejection fraction of 55-60% Repeat Echo ordered on 01/23 showed normal EF, with LVH. BNP slightly elevated at 300. Diabetes mellitus- Continue glargine 15 units subcu twice daily resuming dosing in the morning Placed on Accu-Cheks with NovoLog SSI Disposition- patient has lived with his , but has more recently been at [facility], where he says she had him placed to be able to get regular meals served to him. 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 WIll consult PT/OT Admission and Anticipated Discharge Date Admission Date: January 22, 2023 Subjective Patient is intermittently confused. He has no new complaints. Review of Systems Review of Systems: All systems reviewed & are unremarkable except as noted in HPI & below Physical Exam Physical Exam: The patient is awake, alert and oriented 3, well developed and well nourished, normocephalic and atraumatic, lying in bed and in no acute distress. HEENT--mucous membranes and oropharynx normal. Neck--supple. No JVD. Heart--normal S1 and S2. No murmurs, rubs or gallops. Lungs--bibasilar rales, No respiratory distress, no accessory muscle use. Abdomen--normal bowel sounds and soft. Nontender. Nondistended. Morbidly obese. Extremities--2+ bilateral pretibial pitting edema, right greater than left. Mild erythema on right anterior lower leg. Chronic venous stasis changes Neurologic--cranial nerves II through XII grossly intact. Psychiatric--normal affect. Results & Data Results & Data Vital Signs (Past 12 Hours) Vital Signs Temp Pulse Resp BP Pulse Ox O2 Del Method O2 Flow Rate 01/23/23 11:16 36.6 C 63 16 147/68 H 99 Nasal Cannula 3 01/23/23 08:31 Nasal Cannula 2 01/23/23 07:28 36.6 C 75 16 144/50 H 97 Nasal Cannula 3 01/23/23 03:49 36.8 C 81 18 131/71 93 Nasal Cannula PG Care Time/CCT Total # of Minutes Spent Total Time Spent with Patient: Total time spent is greater than 50% in coordination of care (as documented) at patient's floor/unit and/or counseling patient: Coding Level of Care Code 77435 SUB INP/OBS CARE 350MIN Diagnoses Pneumonia J18.9 Cellulitis of both lower extremities L03.115; L03.116 Diabetes E11.9 Hypertension I10 Positive result for methicillin resistant Staphylococcus aureus (MRSA) screening Z22.322 KAMERON (acute kidney injury) N17.9 BPH (benign prostatic hyperplasia) N40.0 UTI (urinary tract infection) N39.0 Leg edema R60.0 Time Spent (min) 50
--- NOTE | 2023-01-23 14:19 | XCELERA ---
[id number]
--- NOTE | 2023-01-23 14:47 | Electrocardiogram Report ---
Test Reason : Blood Pressure : / mmHG Vent. Rate : 080 BPM Atrial Rate : 080 BPM P-R Int : 170 ms QRS Dur : 136 ms QT Int : 434 ms P-R-T Axes : 036 -37 053 degrees QTc Int : 500 ms Normal sinus rhythm Left axis deviation Non-specific intra-ventricular conduction block Abnormal ECG When compared with ECG of 21-JAN-2023 23:02, Premature atrial complexes are no longer Present Non-specific intra-ventricular conduction block has replaced Incomplete right bundle branch block Confirmed by Ezio Collado ([id number]) on 01/23/2023 2:46:48 PM Referred By: [facility] Confirmed By:Ezio Collado
[2023-01-23] MEDS ORDERED: CEFEPIME 2,000 MG in SYRINGE 0 ML IV SCH (16:00)
[2023-01-23] MEDS: AZITHROMYCIN 500 MG in DEXTROSE 5% 250 ML IV SCH (18:09)
[2023-01-24] MEDS: CEFEPIME 2,000 MG in SYRINGE 0 ML IV SCH ×3 (00:37→17:52)
[2023-01-24] MEDS: HEPARIN SOD 5,000 UNIT/0.5 ML VIAL SQ SCH ×3 (05:12→22:20)
[2023-01-24] MEDS: LINEZOLID 600 MG/300 ML BAG IV SCH ×2 (05:12→17:45)
[2023-01-24 06:39] LABS: Hematocrit (blood only) 30.9 % (42.0-52.0); Hemoglobin 10.2 g/dl (14.0-18.0); Mean Corpuscular Hemoglobin 27.3 pg (25.0-34.0); Mean Corpuscular Volume 82.8 fL (80.0-100.0); Mean Platelet Volume 9.1 fL (9.4-12.4); Platelet Count 317 K/uL (130-400); RDW Coefficient of Variation 14.5 % (11.5-14.5); RDW Standard Deviation 44.2 fL (36.4-46.3); Red Blood Count 3.73 M/uL (4.70-6.10); White Blood Count 12.29 K/ul (4.8-10.8)
[2023-01-24 06:58] LABS: Albumin Level 2.9 gm/dl (3.4-5.0); BUN Creatinine Ratio 38.3 (10-20); Bilirubin,Total 0.3 mg/dl (0.2-1.0); C Reactive Protein 7.63 mg/dl (0-0.5); Calcium 8.7 mg/dl (8.6-10.3); Creatinine Clr Calc Pharmacy 73.1 ml/min; Est GFR (African American) 65.3 ml/min; Est GFR (Non-African American) 56.3 ml/min; Magnesium 2.2 mg/dl (1.7-2.4); Potassium 3.7 mmol/L (3.5-5.1); Total Protein 5.9 gm/dl (6.0-8.3)
[2023-01-24 07:04] LABS: Basophils # (auto) 0.03 K/uL (0.00-0.20); Basophils % (auto) 0.2 %; Eosinophils # (auto) 0.22 K/uL (0.00-0.50); Eosinophils % (auto) 1.8 %; Immature Granulocytes # (auto) 0.68 K/uL (0.01-0.20); Immature Granulocytes % (auto) 5.5 %; Lymphocytes # (auto) 2.24 K/uL (1.20-3.40); Lymphocytes % (auto) 18.2 %; Monocytes # (auto) 0.98 K/uL (0.11-0.59); Neutrophils # (auto) 8.14 K/uL (1.40-6.50); Neutrophils % (auto) 66.3 %; RBC Morphology Unremarkable
--- NOTE | 2023-01-24 07:51 | Hospitalist Progress Note ---
Date of Service January 24, 2023 Assessment & Plan (1) Pneumonia: (2) Cellulitis of both lower extremities: (3) Diabetes: (4) Hypertension: (5) Positive result for methicillin resistant Staphylococcus aureus (MRSA) screening: (6) KAMERON (acute kidney injury): (7) BPH (benign prostatic hyperplasia): (8) Leg edema: Plan Pneumonia/MRSA positive screen- Continue azithromycin 500 mg IV daily and cefepime 2 g IV every 12 hours, begun in the ED Continue linezolid 60 mg IV every 12 hours due to positive MRSA screen in the setting of acute kidney injury (added 01/23) Duonebs every 4 hours while awake and every 2 hours when necessary. Nasal cannula oxygen, titrate to keep pulse ox around 92%, as patient likely has undiagnosed severe MARILYN, and obesity hypoventilation syndrome Procalcitonin and CRP downtrending Benign Prostatic Hyperplasia/clear-cell adenocarcinoma of kidney/CKD stage III- Hold meloxicam Creatinine 1.46 on admission, with base 1.05. Combined with dropping blood pressure in the ED down to the systolic 102, patient was given 500 cc bolus of normal saline, with improvement in systolic to 130s. Creatinine improved to 1.28 on 01/24 Bilateral lower extremity cellulitis/chronic venous stasis dermatitis (R>L), BLE edema Antibiotics as above Patient will ultimately need to have reduction in LE edema. We will start with initially holding amlodipine 10 mg daily and hydralazine 50 mg p.o. every 8 hours in the setting of use of meloxicam If edema improves by passively redressing these medications, may not need to have aggressive diuresis with IV furosemide. Check bilateral LE venous dopplers Resumed metoprolol succinate 100 mg every morning in the morning Elevated troponin/hypertension- The patient will be admitted to telemetry for serial cardiac enzymes, serial EKG's, cardiac rhythm monitoring and a 2-D echocardiogram with Dopplers. Likely type II supply/demand mismatch Continue metoprolol succinate 100 mg every morning, holding the amlodipine 10 mg daily, hydralazine 50 mg every 8 hours due to significant lower extremity edema Repeat Echo ordered on 01/23 showed normal EF, with LVH. BNP slightly elevated at 300. Diabetes mellitus- Continue glargine 15 units subcu twice daily resuming dosing in the morning Placed on Accu-Cheks with NovoLog SSI Disposition- patient has lived with his , but has more recently been at [facility], where he says she had him placed to be able to get regular meals served to him. 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 WIll consult PT/OT Admission and Anticipated Discharge Date Admission Date: January 22, 2023 Subjective Overall no concerns this morning. Denies any lightheadedness or dizziness. Denies any chest pain, palpitations, shortness of breath, or significant coughing. Reports he did have a condom catheter earlier but removed it. Review of Systems Review of Systems: Per subjective Physical Exam Physical Exam: General: Well-appearing, NAD Cardiovascular: RRR, no M/R/G Pulmonary: diminished aeration, no W/R/R Abdomen: Soft, NT/ND, no guarding Extremities: Moving all extremities, mild redness and warmth of right greater than left lower extremities with mild edema Integumentary: No suspicious rash or lesion on exposed skin Neurologic: AAOx3, no focal deficits Psychiatric: Appropriate mood/affect Results & Data Results & Data Vital Signs (Past 12 Hours) Vital Signs Temp Pulse Resp BP Pulse Ox O2 Del Method O2 Flow Rate 01/24/23 05:04 36.6 C 75 16 167/78 H 94 Room Air 01/23/23 20:20 Nasal Cannula 1 01/23/23 22:49 37 C 65 18 159/80 H 98 Nasal Cannula Laboratory Results Reviewed CBCnotable for hemoglobin of 10.2 Reviewed CMPnotable for mild elevations in AST and ALT, creatinine improved to one-point CRP elevated to 7.63, procalcitonin decreased to 0.4 Diagnostic Findings Chest x-ray from 01/23 showed small left pleural effusion with mild left basilar consolidation suggestive of atelectasis versus pneumonia. Cardiomegaly with hyperinflated Echocardiogram 01/23 with mild LVH, normal EF 60 to 65%, mild tricuspid regurgitation PG Care Time/CCT Total # of Minutes Spent Total Time Spent with Patient: Total time spent is greater than 50% in coordination of care (as documented) at patient's floor/unit and/or counseling patient: Coding Level of Care Code 60022 SUB INP/OBS CARE 2/35MIN Diagnoses Pneumonia J18.9 Cellulitis of both lower extremities L03.115; L03.116 Diabetes E11.9 Hypertension I10 Positive result for methicillin resistant Staphylococcus aureus (MRSA) screening Z22.322 KAMERON (acute kidney injury) N17.9 BPH (benign prostatic hyperplasia) N40.0 Leg edema R60.0
[2023-01-24] MEDS: SENNA 8.6 MG TAB PO SCH (08:26)
[2023-01-24] MEDS: VITAMIN B COMPLEX TAB PO SCH (08:26)
[2023-01-24] MEDS: CHOLECALCIFEROL 1,000 UNITS 25 MCG TAB PO SCH (08:26)
[2023-01-24] MEDS: ATORVASTATIN 40 MG TAB PO SCH (08:26)
[2023-01-24] MEDS: DIVALPROEX DELAY RELEASE 500 MG TAB PO SCH (08:26)
[2023-01-24] MEDS: METOPROLOL SUCC 50MG EXT REL TAB PO SCH (08:26)
[2023-01-24] MEDS: TAMSULOSIN HCL 0.4 MG CAP PO SCH ×2 (08:26→20:02)
[2023-01-24] MEDS: OXYBUTYNIN CHLORIDE XL 5 MG TABCR PO SCH (08:26)
[2023-01-24] MEDS: INSULIN ASPART PER UNIT CHARGE SC SCH ×4 (08:43→22:21)
[2023-01-24] MEDS: LANTUS PER UNIT CHARGE SQ SCH ×2 (08:43→22:20)
[2023-01-24] MEDS: AZITHROMYCIN 500 MG in DEXTROSE 5% 250 ML IV SCH (17:45)
[2023-01-25] MEDS: CEFEPIME 2,000 MG in SYRINGE 0 ML IV SCH ×3 (00:55→15:39)
[2023-01-25] MEDS: LINEZOLID 600 MG/300 ML BAG IV SCH ×2 (06:02→17:32)
[2023-01-25] MEDS: HEPARIN SOD 5,000 UNIT/0.5 ML VIAL SQ SCH ×3 (06:03→21:04)
[2023-01-25 07:31] LABS: Hematocrit (blood only) 29.6 % (42.0-52.0); Hemoglobin 10.1 g/dl (14.0-18.0); Mean Corpuscular Hemoglobin 28.2 pg (25.0-34.0); Mean Corpuscular Hgb Conc 34.1 g/dL (32.0-36.0); Mean Corpuscular Volume 82.7 fL (80.0-100.0); Platelet Count 321 K/uL (130-400); RDW Coefficient of Variation 14.3 % (11.5-14.5); RDW Standard Deviation 43.3 fL (36.4-46.3); Red Blood Count 3.58 M/uL (4.70-6.10); White Blood Count 10.02 K/ul (4.8-10.8)
[2023-01-25 07:50] LABS: BUN Creatinine Ratio 33.6 (10-20); Calcium 8.4 mg/dl (8.6-10.3); Creatinine Clr Calc Pharmacy 87.3 ml/min; Est GFR (African American) 81.1 ml/min; Potassium 3.8 mmol/L (3.5-5.1)
[2023-01-25] MEDS: VITAMIN B COMPLEX TAB PO SCH (08:36)
[2023-01-25] MEDS: OXYBUTYNIN CHLORIDE XL 5 MG TABCR PO SCH (08:36)
[2023-01-25] MEDS: INSULIN ASPART PER UNIT CHARGE SC SCH ×4 (08:36→21:15)
[2023-01-25] MEDS: ATORVASTATIN 40 MG TAB PO SCH (08:36)
[2023-01-25] MEDS: METOPROLOL SUCC 50MG EXT REL TAB PO SCH (08:36)
[2023-01-25] MEDS: TAMSULOSIN HCL 0.4 MG CAP PO SCH ×2 (08:36→21:05)
[2023-01-25] MEDS: LANTUS PER UNIT CHARGE SQ SCH ×2 (08:36→21:15)
[2023-01-25] MEDS: DIVALPROEX DELAY RELEASE 500 MG TAB PO SCH (08:36)
[2023-01-25] MEDS: CHOLECALCIFEROL 1,000 UNITS 25 MCG TAB PO SCH (08:36)
--- NOTE | 2023-01-25 08:58 | Ultrasound Report ---
US venous doppler LE BI CLINICAL HISTORY: leg swelling, R>L TECHNIQUE: Bilateral lower extremity real-time compression venous ultrasound with Color Doppler imagi ng. Utilizing real-time ultrasonic imaging multiple real time high-resolution ultrasonic images with compression and noncompression maneuvers of the deep venous system in addition to color doppler imagi ng were performed from the common femoral vein through the proximal calf veins. COMPARISON: None available at the time of this dictation. FINDINGS/IMPRESSION: Currently there is normal compressibility of the deep venous system from the common femoral vein thro ugh the proximal calf veins. No superficial venous thrombosis is identified. ACT 112: Negative or not required by law. Electronically signed by: Aurelio Day M.D. 01/25/2023 8:57 AM
[2023-01-25] MEDS: SENNA 8.6 MG TAB PO SCH (10:09)
--- NOTE | 2023-01-25 15:17 | Hospitalist Progress Note ---
Date of Service January 25, 2023 Assessment & Plan (1) Pneumonia: (2) Cellulitis of both lower extremities: (3) Diabetes: (4) Hypertension: (5) Positive result for methicillin resistant Staphylococcus aureus (MRSA) screening: (6) KAMERON (acute kidney injury): (7) BPH (benign prostatic hyperplasia): (8) Leg edema: Plan Pneumonia/MRSA positive screen- Duonebs every 4 hours while awake and every 2 hours when necessary. Nasal cannula oxygen, titrate to keep pulse ox around 92%, as patient likely has undiagnosed severe MARILYN, and obesity hypoventilation syndrome Procalcitonin and CRP downtrended, leukocytosis resolved Antibiotics: azithromycin 500 mg IV daily (start 1012PM x 3 doses), cefepime 2 g IV every 8 hours (13PM - 01/25PM), ceftriaxone (01/25PM - ?) and linezolid 60 mg IV every 12 hours (1012AM - ?) Clinically improving from a pulmonary standpoint, but no significant changes of RLE yet (see below). Will stop azithromycin after 01/25PM dose. De-escalate cefepime to ceftriaxone 01/25 Benign Prostatic Hyperplasia/clear-cell adenocarcinoma of kidney/CKD stage III- Hold meloxicam Creatinine 1.46 on admission, improved to baseline 01/25 LE cellulitis/chronic venous stasis dermatitis (R>L), BLE edema Previously noted to have BLE cellulitis, today clinically appears to be RLE still involved with LLE improved erythema Antibiotics as above Holding home amlodipine 10 mg daily and hydralazine 50 mg p.o. every 8 hours to see if edema improves and monitor BP Bilateral LE venous dopplers negative Metoprolol succinate 100 mg every morning Elevated troponin/hypertension- Likely type II supply/demand mismatch Continue metoprolol succinate 100 mg every morning. Holding the amlodipine 10 mg daily and hydralazine 50 mg every 8 hours due to significant lower extremity edema Repeat Echo ordered on 01/23 showed normal EF, with LVH. BNP slightly elevated at 300. Diabetes mellitus- Continue glargine 15 units subcu twice daily resuming dosing in the morning Placed on Accu-Cheks with NovoLog SSI Disposition- patient has lived with his , but has more recently been at [facility], where he has a bed on hold for his return when medically stable Patient has history of traumatic brain injury with left sided weakness. PT/OT Admission and Anticipated Discharge Date Admission Date: January 22, 2023 Subjective Patient denies any concerns today. Specifically denies any lightheadedness/dizziness, chest pain, shortness of breath, abdominal pain. Does report some discomfort in his legs Review of Systems Review of Systems: Per subjective Physical Exam Physical Exam: General: Well-appearing, NAD Cardiovascular: RRR, no M/R/G Pulmonary: diminished aeration, no W/R/R Abdomen: Soft, NT/ND, no guarding Extremities: Moving all extremities, redness and warmth of RLE. No significant redness or warmth LLE. Mild BLE edema Integumentary: No suspicious rash or lesion on exposed skin Neurologic: AAOx1 Psychiatric: Appropriate mood/affect Results & Data Results & Data Vital Signs (Past 12 Hours) Vital Signs Temp Pulse Pulse Resp BP Pulse Ox O2 Del Method 01/25/23 12:47 37.3 C 92 H 18 161/79 H 92 Room Air 01/25/23 08:00 86 01/25/23 08:00 Room Air 01/25/23 09:01 36.6 C 85 18 165/66 H 94 Room Air Laboratory Results Reviewed CBC, BMP, magnesium todaynotable for stable hemoglobin, resolution of leukocytosis, improved creatinine to 1.07 Diagnostic Findings Venous Doppler study bilateral lower extremities 01/24: Normal compressibility of the deep venous system from the common femoral vein through the proximal calf veins. No superficial venous thrombosis identified PG Care Time/CCT Total # of Minutes Spent Total Time Spent with Patient: Total time spent is greater than 50% in coordination of care (as documented) at patient's floor/unit and/or counseling patient: Coding Level of Care Code 26959 SUB INP/OBS CARE 2/35MIN Diagnoses Pneumonia J18.9 Cellulitis of both lower extremities L03.115; L03.116 Diabetes E11.9 Hypertension I10 Positive result for methicillin resistant Staphylococcus aureus (MRSA) screening Z22.322 KAMERON (acute kidney injury) N17.9 BPH (benign prostatic hyperplasia) N40.0 Leg edema R60.0
[2023-01-25] MEDS ORDERED: cefTRIAXone SODIUM 2,000 MG in DEXTROSE 5 % MINI-B 50 ML IV SCH (23:30)
[2023-01-26] MEDS: LINEZOLID 600 MG/300 ML BAG IV SCH (05:26)
[2023-01-26] MEDS: HEPARIN SOD 5,000 UNIT/0.5 ML VIAL SQ SCH ×3 (05:26→21:12)
--- NOTE | 2023-01-26 07:52 | Hospitalist Progress Note ---
Date of Service January 26, 2023 Assessment & Plan (1) Pneumonia: Plan: Pneumonia/MRSA positive screen- Duonebs every 4 hours while awake and every 2 hours when necessary. Nasal cannula oxygen, titrate to keep pulse ox around 92%, as patient likely has undiagnosed severe MARILYN, and obesity hypoventilation syndrome Procalcitonin and CRP downtrended, leukocytosis resolved Antibiotics: Patient be discharged on cefdinir and linezolid (2) Cellulitis of both lower extremities: Plan: LE cellulitis/chronic venous stasis dermatitis (R>L), BLE edema Previously noted to have BLE cellulitis, today clinically appears to be RLE still involved with LLE improved erythema Antibiotics as above Holding home amlodipine 10 mg daily and hydralazine 50 mg p.o. every 8 hours to see if edema improves and monitor BP Bilateral LE venous dopplers negative (3) Diabetes: Plan: Continue glargine 15 units subcu twice daily resuming dosing in the morning Placed on Accu-Cheks with NovoLog SSI (4) Hypertension: Plan: Metoprolol succinate 100 mg every morning Elevated troponin/hypertension- Likely type II supply/demand mismatch Continue metoprolol succinate 100 mg every morning. Holding the amlodipine 10 mg daily and hydralazine 50 mg every 8 hours due to significant lower extremity edema Repeat Echo ordered on 01/23 showed normal EF, with LVH. BNP slightly elevated at 300. 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 PT/OT Admission and Anticipated Discharge Date Admission Date: January 22, 2023 Subjective Patient pleasantly confused has no focal complaints still with erythema to his leg. Patient states that he wants to leave. We attempted to discharge the patient but his place of residence, the [place], cannot supply transfer team to come get him. Subsequently his discharge was held Physical Exam Physical Exam: Lungs are clear heart is regular extremities are with some erythema to the distal right lower extremity. It is not warm cardiovascular streaks Results & Data Results & Data Vital Signs (Past 12 Hours) Vital Signs Temp Pulse Resp BP Pulse Ox O2 Del Method 01/26/23 03:17 99.0 F 77 20 180/75 H 93 Room Air 01/25/23 21:00 Room Air 01/25/23 23:35 98.4 F 85 21 167/73 H 95 Room Air 01/25/23 20:31 98.6 F 98 H 19 168/69 H 93 Room Air PG Care Time/CCT Total # of Minutes Spent Total Time Spent with Patient: Total time spent is greater than 50% in coordination of care (as documented) at patient's floor/unit and/or counseling patient: Coding Level of Care Code 10431 SUB INP/OBS CARE 05/07MIN Diagnoses Pneumonia J18.9 Cellulitis of both lower extremities L03.115; L03.116 Diabetes E11.9 Hypertension I10 KAMERON (acute kidney injury) N17.9 BPH (benign prostatic hyperplasia) N40.0
[2023-01-26] MEDS: INSULIN ASPART PER UNIT CHARGE SC SCH ×4 (08:35→21:11)
[2023-01-26 08:40] LABS: Hematocrit (blood only) 31.8 % (42.0-52.0); Hemoglobin 10.8 g/dl (14.0-18.0); Mean Corpuscular Hemoglobin 28.1 pg (25.0-34.0); Mean Corpuscular Volume 82.6 fL (80.0-100.0); Mean Platelet Volume 8.8 fL (9.4-12.4); Platelet Count 336 K/uL (130-400); RDW Coefficient of Variation 14.6 % (11.5-14.5); RDW Standard Deviation 43.8 fL (36.4-46.3); Red Blood Count 3.85 M/uL (4.70-6.10); White Blood Count 12.17 K/ul (4.8-10.8)
[2023-01-26 08:59] LABS: BUN Creatinine Ratio 22.4 (10-20); Calcium 8.6 mg/dl (8.6-10.3); Creatinine Clr Calc Pharmacy 78.3 ml/min; Est GFR (African American) 73.5 ml/min; Est GFR (Non-African American) 63.5 ml/min; Potassium 4.2 mmol/L (3.5-5.1)
[2023-01-26] MEDS: LANTUS PER UNIT CHARGE SQ SCH ×2 (10:31→21:10)
[2023-01-26] MEDS: SENNA 8.6 MG TAB PO SCH (10:32)
[2023-01-26] MEDS: ATORVASTATIN 40 MG TAB PO SCH (10:32)
[2023-01-26] MEDS: CHOLECALCIFEROL 1,000 UNITS 25 MCG TAB PO SCH (10:32)
[2023-01-26] MEDS: DIVALPROEX DELAY RELEASE 500 MG TAB PO SCH (10:32)
[2023-01-26] MEDS: METOPROLOL SUCC 50MG EXT REL TAB PO SCH (10:32)
[2023-01-26] MEDS: VITAMIN B COMPLEX TAB PO SCH (10:33)
[2023-01-26] MEDS: OXYBUTYNIN CHLORIDE XL 5 MG TABCR PO SCH (10:33)
[2023-01-26] MEDS: TAMSULOSIN HCL 0.4 MG CAP PO SCH ×2 (10:33→21:10)
[2023-01-26] MEDS ORDERED: CEFDINIR 300 MG CAP PO STA (13:59)
[2023-01-26] MEDS ORDERED: LINEZOLID 600 MG TAB PO ONE (15:00)
[2023-01-26] MEDS: CEFDINIR 300 MG CAP PO SCH (17:26)
[2023-01-26] MEDS: LINEZOLID 600 MG TAB PO SCH (21:10)
[2023-01-27] MEDS: HEPARIN SOD 5,000 UNIT/0.5 ML VIAL SQ SCH ×2 (05:56→14:06)
--- NOTE | 2023-01-27 06:04 | Electrocardiogram Report ---
Test Reason : Blood Pressure : / mmHG Vent. Rate : 071 BPM Atrial Rate : 071 BPM P-R Int : 160 ms QRS Dur : 112 ms QT Int : 426 ms P-R-T Axes : 035 -31 051 degrees QTc Int : 462 ms Sinus rhythm with marked sinus arrhythmia Left axis deviation Non-specific intra-ventricular conduction delay Abnormal ECG When compared with ECG of 23-JAN-2023 05:10, No significant change Confirmed by Ramy Perez ([id number]) on 01/27/2023 6:04:30 AM Referred By: [facility] Confirmed By:Ramy Perez
[2023-01-27] MEDS: SENNA 8.6 MG TAB PO SCH (08:21)
[2023-01-27] MEDS: CHOLECALCIFEROL 1,000 UNITS 25 MCG TAB PO SCH (08:21)
[2023-01-27] MEDS: LINEZOLID 600 MG TAB PO SCH (08:21)
[2023-01-27] MEDS: DIVALPROEX DELAY RELEASE 500 MG TAB PO SCH (08:21)
[2023-01-27] MEDS: METOPROLOL SUCC 50MG EXT REL TAB PO SCH (08:21)
[2023-01-27] MEDS: TAMSULOSIN HCL 0.4 MG CAP PO SCH (08:21)
[2023-01-27] MEDS: CEFDINIR 300 MG CAP PO SCH (08:21)
[2023-01-27] MEDS: OXYBUTYNIN CHLORIDE XL 5 MG TABCR PO SCH (08:21)
[2023-01-27] MEDS: VITAMIN B COMPLEX TAB PO SCH (08:21)
[2023-01-27] MEDS: LANTUS PER UNIT CHARGE SQ SCH (08:28)
[2023-01-27] MEDS: INSULIN ASPART PER UNIT CHARGE SC SCH ×3 (08:28→17:44)
[2023-01-27 08:37] LABS: Hemoglobin 9.6 g/dl (14.0-18.0); Mean Corpuscular Hemoglobin 27.7 pg (25.0-34.0); Mean Corpuscular Hgb Conc 33.1 g/dL (32.0-36.0); Mean Corpuscular Volume 83.6 fL (80.0-100.0); Mean Platelet Volume 8.7 fL (9.4-12.4); Platelet Count 258 K/uL (130-400); RDW Coefficient of Variation 14.2 % (11.5-14.5); RDW Standard Deviation 43.2 fL (36.4-46.3); Red Blood Count 3.47 M/uL (4.70-6.10); White Blood Count 13.33 K/ul (4.8-10.8)
[2023-01-27 08:38] LABS: BUN Creatinine Ratio 20.2 (10-20); Calcium 8.1 mg/dl (8.6-10.3); Creatinine Clr Calc Pharmacy 80.4 ml/min; Est GFR (African American) 75.1 ml/min; Est GFR (Non-African American) 64.8 ml/min
[2023-01-27] MEDS: ATORVASTATIN 40 MG TAB PO SCH (14:06)
--- NOTE | 2023-01-27 14:53 | Discharge Summary ---
Date of Service January 27, 2023 Admission HPI Per Admitting Provider The patient is a 72-year-old male with a past medical history including vitamin D deficiency, diabetes mellitus, hypertension, KAMERON, BPH, history of falls, UTI, clear-cell carcinoma of the right kidney, morbid obesity, and brain injury status post fall. The patient presents to the emergency department with symptoms above. Significant laboratories: WBC 13.64, hemoglobin 10.5, hematocrit 30.6, potassium 3.4, creatinine 1.46, glucose 161 and BUN 40. Troponin 27.9, albumin 3.3, procalcitonin 0.93 Viral PCR test was negative Chest x-ray showed atelectasis versus early infiltrate at the bases bilaterally From the ED the patient received the following: Normal saline 500 mill bolus, DuoNeb, azithromycin 500 mg IV x1, and cefepime 2 g IV x1 Principal Diagnosis pneumonia, healthcare associated present on admission lower extremity cellulitis MRSA screen positive Discharge Exam patient is pleasantly confused he is conversational his lungs are clear his right lower extremity erythema is receding Discharge Data Allergies Allergy/AdvReac Type Severity Reaction Status Date / Time naproxen Allergy Intermediate Hives Verified 07/24/21 11:12 Consultations 01/22/23 00:38 ED Decision to Admit Stat Ordered Studies 01/24/23 17:10 US venous duplex leg [US venous doppler LE BI] Routine Hospital Course (1) Pneumonia: Pneumonia/MRSA positive screen- Duonebs every 4 hours while awake and every 2 hours when necessary. Nasal cannula oxygen, titrate to keep pulse ox around 92%, as patient likely has undiagnosed severe MARILYN, and obesity hypoventilation syndrome Procalcitonin and CRP downtrended, leukocytosis resolved Antibiotics: Patient be discharged on cefdinir and linezolid (2) Cellulitis of both lower extremities: LE cellulitis/chronic venous stasis dermatitis (R>L), BLE edema Previously noted to have BLE cellulitis, today clinically appears to be RLE still involved with LLE improved erythema Antibiotics as above Holding home amlodipine 10 mg daily and hydralazine 50 mg p.o. every 8 hours to see if edema improves and monitor BP Bilateral LE venous dopplers negative (3) Diabetes: Continue glargine 15 units subcu twice daily resuming dosing in the morning Placed on Accu-Cheks with NovoLog SSI (4) Hypertension: Metoprolol succinate 100 mg every morning Elevated troponin/hypertension- Likely type II supply/demand mismatch Continue metoprolol succinate 100 mg every morning. Holding the amlodipine 10 mg daily and hydralazine 50 mg every 8 hours due to significant lower extremity edema Repeat Echo ordered on 01/23 showed normal EF, with LVH. BNP slightly elevated at 300. (5) KAMERON (acute kidney injury): (6) BPH (benign prostatic hyperplasia): Benign Prostatic Hyperplasia/clear-cell adenocarcinoma of kidney/CKD stage III- Hold meloxicam Creatinine 1.46 on admission, improved to baseline 01/25 Plan Disposition- patient has lived with his , but has more recently been at [facility], where he has a bed on hold for his return when medically stable Patient has history of traumatic brain injury with left sided weakness. Total Time Total Time Spent Total Time Spent (In Minutes): it required greater than 30 minutes to prepare this patient for discharge Discharge Plan Discharge Items Patient Disposition: Transfer Jail [facility] Reason For Visit: RLE CELLULITIS, URI, HYPOXIA, KAMERON Discharge Diagnosis: pneumonia rle cellulitis Activity: Per Instructions section Non-emergency contact: Primary Care Provider Call non-emergency contact if: your symptoms worsen Follow-up/Referrals: [facility] [Primary Care Provider] - Diet: Carb Consistent or DM2 Addtl Attending Provider Instructions: please complete your antibiotics keep good survielence on your leg wound to asses improvement have a follow up cxr in one month to asses healing Left Basilar pneumonia Pending Studies at Discharge: No Stand-Alone Forms: My [facility] Skilled Items Patient informed of condition?: No DNR: No Discharge Level of Care: Skilled Communicable Disease: No Discharge Prognosis: Stable Lines: None Urinary Catheter: No Medications and DC Order Prescriptions: New linezolid 600 mg tablet 600 mg PO BID Qty: 14 0RF cefdinir 300 mg capsule 300 mg PO BID Qty: 14 0RF Continued insulin lispro [Humalog KwikPen Insulin] 100 unit/mL insulin pen 12 unit subcut TIDM Rx Instructions: hold <100, call MD>450 metoprolol succinate 50 mg tablet extended release 24 hr 100 mg PO QAM oxybutynin chloride 10 mg tablet extended release 24hr 15 mg PO QAM venlafaxine 150 mg capsule,extended release 24hr 150 mg PO QAM divalproex 500 mg tablet,delayed release (DR/EC) 1,000 mg PO QAM tamsulosin 0.4 mg capsule 0.4 mg PO BID furosemide 40 mg tablet 40 mg PO QAM atorvastatin 40 mg Tablet 40 mg PO QAM vitamin B complex Tablet 1 tab PO QAM omeprazole 20 mg Tablet,Delayed Release (Dr/Ec) 20 mg PO QAM ferrous sulfate 325 mg (65 mg iron) tablet 325 mg PO QAM acetaminophen [Tylenol] 325 mg Tablet 650 mg PO Q6 MDD 3g PRN (Reason: Fever Or Pain) amlodipine 10 mg tablet 10 mg PO DAILY sennosides [senna] 8.6 mg Tablet 817.2 mg PO DAILY Rx Instructions: 2 tablet dose meloxicam 15 mg tablet 15 mg PO DAILY insulin glargine [Lantus Solostar U-100 Insulin] 100 unit/mL (3 mL) insulin pen 15 unit SUBCUT BID cholecalciferol (vitamin D3) [Vitamin D3] 50 mcg (2,000 unit) Tablet 50 mcg PO QAM Discontinued venlafaxine 75 mg capsule,extended release 24hr 75 mg PO QAM cephalexin [Keflex] 500 mg Capsule 500 mg PO Q8H Rx Instructions: take for 10 days...start 01/22/23 and end 02/01/23 hydralazine 50 mg Tablet 50 mg PO Q8 Discharge Orders: Discharge Order (Routine); Ordered 01/26/23 Ordered By: Kian Pratt Admission Data Admit Date/Time: 01/22/23 01:20 Attending Provider: Kian Pratt Admit Provider: Alexi Subramanian Primary Care Provider: [facility] Other Providers: Alexi Subramanian Coding Level of Care Code 33230 INP/OBS DISCH >30 MIN Diagnoses Pneumonia J18.9 Cellulitis of both lower extremities L03.115; L03.116 Diabetes E11.9 Hypertension I10 KAMERON (acute kidney injury) N17.9 BPH (benign prostatic hyperplasia) N40.0
== END 2023-01-27 17:46 | DRG 871 ==
LOC: ED 22:46 → SUATTDRO 01-22 01:20 → EDINP 01-22 01:20 → 2S 01-22 15:59